=== PATIENT | female | born 1960 | race Caucasian/White ===

== ENCOUNTER 2019-05-27 06:52 | Inpatient (IN) ==
[~2019-05-27 06:52] MED LIST: LIDOCAINE 1% 20 ML VIAL ONE; MIDAZOLAM 2 MG/2 ML VIAL ONE; diphenhydrAMINE 50 MG/1 ML VIAL ONE; fentaNYL 100 MCG/2 ML VIAL ONE
[2019-05-27] MEDS ORDERED: TIROFIBAN 5,000 MCG/100 ML PREMIX IV ONE (06:58)
[2019-05-27] MEDS ORDERED: HYDROmorphone 2 MG/1 ML VIAL ONE (07:16)
[2019-05-27] MEDS ORDERED: ENOXAPARIN 60 MG/0.6 ML SYRINGE ONE (07:22)
[2019-05-27] MEDS ORDERED: FUROSEMIDE 40 MG/4 ML VIAL ONE (07:47)
[2019-05-27 07:59] LABS: Basophils # 0.1 10*3/uL (0.0-0.2); Basophils % 0.5 % (0.0-0.8); Eosinophils % 0.1 % (0.00-10.9); Hematocrit 41.9 VOL% (35.7-47.0); Hemoglobin 13.7 GM/DL (12.0-16.0); Immature Granulocytes % 0.6 %; Immature Granulocytes Absolute 0.09 #; Lymphocytes # 2.3 10*3/uL (1.4-4.0); Lymphocytes % 14.4 % (21.3-54.2); Mean Corpuscular HGB Conc 32.7 GM/DL (32-36); Mean Corpuscular Volume 92.5 FL (87-102); Mean Platelet Volume 11.6 FL (9.6-12.0); Monocytes % 3.4 % (1.7-12.7); Platelet Count 291 T/CUMM (130-400); Red Blood Count 4.53 MC/CUMM (3.8-5.5); Red Cell Distribution Width 12.7 % (9.3-17.3)
[2019-05-27] MEDS ORDERED: NITROGLYCERIN SL 0.4 MG TABLET SL PRN (08:00)
[2019-05-27] MEDS ORDERED: ACETAMINOPHEN 325 MG TABLET PO PRN (08:00)
[2019-05-27 08:15] LABS: Albumin 3.1 G/DL (3.4-5.0); Bilirubin,Total 0.5 MG/DL (0.2-1.0); Calcium 7.9 MG/DL (8.5-10.1); Osmolality,Calculated 267.5 MOS/KG (273-304); Total Protein 6.1 G/DL (6.4-8.3)
[2019-05-27 08:24] LABS: Risk Ratio 3.77; VLDL CHOLESTEROL 20.4 MG/DL
[2019-05-27 08:36] LABS: CKMB % 7.4 %
[2019-05-27 08:42] LABS: Apearance,Urine Slightly Hazy (Clear); Bilirubin,Urine Negative (Negative); Blood, Urine Negative (Negative); Glucose,Urine (UA) 50 mg/dL (Negative); Ketones,Urine Negative (Negative); Mucus,Urine Few /LPF (Occasional); Nitrite,Urine Negative (Negative); Protein,Urine Negative; RBC,Urine 3 /HPF (0-4); Urine Color Amber (Yellow); Urine Specific Gravity 1.049 (1.001-1.035); Urine Urobilinogen < 2.0 EU/DL (0.2-1.0); WBC,Urine <1 /HPF (0-6)
[2019-05-27 09:11] LABS: CKMB % 8.8 %
[2019-05-27] MEDS ORDERED: LEVALBUTEROL 1.25 MG/3 ML NEB RESP TX ONE (09:24)
[2019-05-27] MEDS: ALBUTEROL 1.25 MG/3 ML NEB RESP TX PRN (09:25)
[2019-05-27] MEDS ORDERED: ONDANSETRON 4 MG/2 ML VIAL ONE (09:27)
[2019-05-27] MEDS ORDERED: NOREPINEPHRINE 4 MG/4 ML VIAL IV ONE (09:37)
[2019-05-27] MEDS ORDERED: METOPROLOL TARTRATE 5 MG/5 ML VIAL IV ONE (09:38)
[2019-05-27] MEDS ORDERED: SUCCINYLCHOLINE 200 MG/10 ML VIAL ONE (09:49)
[2019-05-27] MEDS ORDERED: MIDAZOLAM 2 MG/2 ML VIAL ONE ×2 (10:05→12:09)
[2019-05-27] MEDS ORDERED: HEPARIN/NACL 0.9% 2 UNITS/ML 500 ML IV ONE (10:39)
[2019-05-27 10:58] LABS: ABG Base Excess -16.5 MMOL/L (-2.5-2.5); ABG PCO2 42.6 MM HG (35-48); ABG TCO2 12.4 MMOL/L (23-27)
[2019-05-27 10:59] LABS: ABG PH 7.091 (7.35-7.45)
[2019-05-27] MEDS ORDERED: NOREPINEPHRINE 16 MG in SODIUM CHLORIDE 0.9% 242 ML IV PRN (11:41)
[2019-05-27] MEDS: PANTOPRAZOLE 40 MG VIAL IV SCH ×2 (11:51→20:07)
[2019-05-27 12:08] LABS: ABG Oxygen Saturation 95.9 % (95-100); ABG PCO2 38.6 MM HG (35-48); ABG PH 7.348 (7.35-7.45); ABG PO2 82.6 MM HG (80-95); ABG TCO2 18.6 MMOL/L (23-27)
[2019-05-27] MEDS ORDERED: NOREPINEPHRINE 8 MG in SODIUM CHLORIDE 0.9% 242 ML IV PRN (12:20)
[2019-05-27] MEDS: PANTOPRAZOLE 40 MG TABLET PO SCH (12:33)
[2019-05-27] MEDS: SODIUM CHLORIDE 0.9% 1,000 ML IV SCH (12:34)
[2019-05-27] MEDS: METOPROLOL TARTRATE 50 MG TABLET PO SCH ×2 (12:34→21:54)
[2019-05-27] MEDS: TICAGRELOR 90 MG TABLET PO SCH ×2 (12:54→20:08)
[2019-05-27] MEDS: MIDAZOLAM 100 MG in SODIUM CHLORIDE 0.9% 80 ML IV SCH (12:54)
[2019-05-27] MEDS: methylPREDNISolone SOD SUC 40 MG/1 ML VIAL IV SCH ×2 (14:23→21:42)
[2019-05-27] MEDS ORDERED: SODIUM CHLORIDE 0.9% 1,000 ML IV SCH (15:30)
[2019-05-27 17:51] LABS: CKMB % 9.6 %
[2019-05-27] MEDS: ROSUVASTATIN 20 MG TABLET PO SCH (20:14)
[2019-05-28] MEDS: ZALEPLON 5 MG CAPSULE PO PRN (00:16)
[2019-05-28 01:10] LABS: CKMB % 10.1 %
[2019-05-28 01:13] LABS: Troponin I > 200.000 NG/ML (0.00-0.045)
[2019-05-28] MEDS: fentaNYL 100 MCG/2 ML VIAL IV PRN ×3 (03:13→21:38)
[2019-05-28 03:50] LABS: ABG Base Excess -2.5 MMOL/L (-2.5-2.5); ABG HCO3 20.6 MMOL/L (20-26); ABG Oxygen Saturation 98.7 % (95-100); ABG PCO2 30.3 MM HG (35-48); ABG PH 7.451 (7.35-7.45); ABG PO2 281.1 MM HG (80-95); ABG TCO2 21.6 MMOL/L (23-27)
[2019-05-28 04:14] LABS: Basophils % 0.1 % (0.0-0.8); Hematocrit 31.8 VOL% (35.7-47.0); Hemoglobin 10.9 GM/DL (12.0-16.0); Immature Granulocytes % 0.6 %; Immature Granulocytes Absolute 0.12 #; Lymphocytes # 1.7 10*3/uL (1.4-4.0); Lymphocytes % 8.3 % (21.3-54.2); Mean Corpuscular HGB Conc 34.3 GM/DL (32-36); Mean Corpuscular Volume 91.6 FL (87-102); Mean Platelet Volume 12.6 FL (9.6-12.0); Monocytes % 4.9 % (1.7-12.7); Neutrophils % 86.1 % (38.7-73.9); Platelet Count 197 T/CUMM (130-400); Red Blood Count 3.47 MC/CUMM (3.8-5.5); White Blood Count 20.9 T/CUMM (4-12)
[2019-05-28 04:53] LABS: Band Neutrophils 3 % (0-10); Lymphocytes 7 % (20-55); Metamyelocytes 1 %; Platelet Estimate Normal; Segmented Neutrophils 85 % (50-85); Total Cells Counted 100
[2019-05-28 04:54] LABS: Hypochromasia Slight
[2019-05-28] MEDS: MIDAZOLAM 100 MG in SODIUM CHLORIDE 0.9% 80 ML IV SCH ×2 (04:58→13:00)
[2019-05-28] MEDS ORDERED: fentaNYL 100 MCG/2 ML VIAL IV ONE (05:06)
[2019-05-28] MEDS: methylPREDNISolone SOD SUC 40 MG/1 ML VIAL IV SCH ×3 (05:23→21:35)
[2019-05-28] MEDS ORDERED: METOPROLOL TARTRATE 5 MG/5 ML VIAL IV ONE (06:57)
[2019-05-28] MEDS ORDERED: FUROSEMIDE 40 MG/4 ML VIAL IV ONE (07:13)
[2019-05-28] MEDS: PANTOPRAZOLE 40 MG TABLET PO SCH (09:00)
[2019-05-28] MEDS: METOPROLOL TARTRATE 50 MG TABLET PO SCH ×2 (10:45→21:15)
[2019-05-28] MEDS: TICAGRELOR 90 MG TABLET PO SCH ×2 (10:45→21:15)
[2019-05-28] MEDS: PANTOPRAZOLE 40 MG VIAL IV SCH ×2 (10:45→21:15)
[2019-05-28] MEDS: ASPIRIN EC 81 MG TABLET PO SCH (10:45)
[2019-05-28] MEDS: ENOXAPARIN 40 MG/0.4 ML SYRINGE SUBCUT SCH (10:45)
[2019-05-28] MEDS: SODIUM CHLORIDE 0.9% 1,000 ML IV SCH (12:28)
[2019-05-28] MEDS: ROSUVASTATIN 20 MG TABLET PO SCH (21:15)
[2019-05-28] MEDS: diphenhydrAMINE CAP 25 MG CAPSULE PO PRN (21:15)
[2019-05-29 03:47] LABS: ABG Base Excess 1.6 MMOL/L (-2.5-2.5); ABG HCO3 25.8 MMOL/L (20-26); ABG Oxygen Saturation 98.6 % (95-100); ABG PCO2 30.2 MM HG (35-48); ABG PH 7.512 (7.35-7.45); ABG TCO2 22.4 MMOL/L (23-27)
[2019-05-29] MEDS: fentaNYL 100 MCG/2 ML VIAL IV PRN ×4 (03:53→18:08)
[2019-05-29 04:00] LABS: Calcium 8.4 MG/DL (8.5-10.1); Osmolality,Calculated 293.1 MOS/KG (273-304)
[2019-05-29] MEDS: methylPREDNISolone SOD SUC 40 MG/1 ML VIAL IV SCH ×3 (06:46→21:21)
[2019-05-29] MEDS ORDERED: FUROSEMIDE 40 MG/4 ML VIAL IV ONE (07:46)
[2019-05-29] MEDS: ENOXAPARIN 40 MG/0.4 ML SYRINGE SUBCUT SCH (08:19)
[2019-05-29] MEDS: TICAGRELOR 90 MG TABLET PO SCH ×2 (08:19→21:13)
[2019-05-29] MEDS: METOPROLOL TARTRATE 50 MG TABLET PO SCH ×2 (08:19→21:13)
[2019-05-29] MEDS: PANTOPRAZOLE 40 MG VIAL IV SCH ×2 (08:19→21:16)
[2019-05-29] MEDS: ASPIRIN EC 81 MG TABLET PO SCH (08:31)
[2019-05-29] MEDS: ASPIRIN CHEW 81 MG TABLET PO SCH (09:00)
[2019-05-29] MEDS ORDERED: MIDAZOLAM 100 MG in SODIUM CHLORIDE 0.9% 80 ML IV PRN (11:43)
[2019-05-29] MEDS: ONDANSETRON 4 MG/2 ML VIAL IV PRN (21:09)
[2019-05-29] MEDS: ROSUVASTATIN 20 MG TABLET PO SCH (21:12)
[2019-05-29] MEDS ORDERED: SODIUM CHLORIDE 0.9% 250 ML IV ONE (23:49)
[2019-05-30] MEDS: PHENYLEPHRINE DRIP 40 MG/250 ML PREMIX IV PRN ×8 (00:36→23:36)
[2019-05-30] MEDS: ALBUTEROL 1.25 MG/3 ML NEB RESP TX PRN ×2 (01:35→10:03)
[2019-05-30 01:51] LABS: Basophils % 0.1 % (0.0-0.8); Hematocrit 25.8 VOL% (35.7-47.0); Hemoglobin 8.4 GM/DL (12.0-16.0); Immature Granulocytes % 1.7 %; Immature Granulocytes Absolute 0.44 #; Lymphocytes # 1.9 10*3/uL (1.4-4.0); Lymphocytes % 7.3 % (21.3-54.2); Mean Corpuscular HGB Conc 32.6 GM/DL (32-36); Monocytes % 3.6 % (1.7-12.7); NRBC # 0.46 10*3/uL; Neutrophils % 87.3 % (38.7-73.9); Platelet Count 207 T/CUMM (130-400); Red Blood Count 2.66 MC/CUMM (3.8-5.5); Red Cell Distribution Width 13.1 % (9.3-17.3); White Blood Count 26.3 T/CUMM (4-12)
[2019-05-30 01:55] LABS: ABG Base Excess -0.3 MMOL/L (-2.5-2.5); ABG Oxygen Saturation 87.6 % (95-100); ABG PCO2 29.8 MM HG (35-48); ABG PH 7.479 (7.35-7.45); ABG PO2 56.7 MM HG (80-95); ABG TCO2 19.1 MMOL/L (23-27)
[2019-05-30 02:05] LABS: Calcium 7.7 MG/DL (8.5-10.1); Osmolality,Calculated 293.4 MOS/KG (273-304)
[2019-05-30] MEDS ORDERED: SODIUM CHLORIDE 0.9% 1,000 ML IV PRN (02:06)
[2019-05-30] MEDS: LEVOFLOXACIN INJ 500 MG in PREMIX 1 EACH IV SCH (02:43)
[2019-05-30 04:21] LABS: Anisocytosis 1+; Hypochromasia 1+; Lymphocytes 3 % (20-55); Segmented Neutrophils 95 % (50-85); Total Cells Counted 100
[2019-05-30 04:22] LABS: Macrocytosis Slight; Microcytosis Slight; Polychromasia 1+
[2019-05-30] MEDS: fentaNYL 100 MCG/2 ML VIAL IV PRN ×2 (05:36→07:36)
[2019-05-30] MEDS: methylPREDNISolone SOD SUC 40 MG/1 ML VIAL IV SCH ×3 (05:45→21:38)
[2019-05-30] MEDS ORDERED: FUROSEMIDE 40 MG/4 ML VIAL IV ONE (06:27)
[2019-05-30] MEDS: ENOXAPARIN 40 MG/0.4 ML SYRINGE SUBCUT SCH (08:28)
[2019-05-30] MEDS: POTASSIUM CHLORIDE 20 MEQ TABLET PO SCH ×2 (08:29→21:34)
[2019-05-30] MEDS: METOPROLOL TARTRATE 50 MG TABLET PO SCH ×2 (08:29→21:33)
[2019-05-30] MEDS: ASPIRIN CHEW 81 MG TABLET PO SCH (08:29)
[2019-05-30] MEDS: TICAGRELOR 90 MG TABLET PO SCH ×2 (08:30→21:33)
[2019-05-30] MEDS: PANTOPRAZOLE 40 MG VIAL IV SCH ×2 (08:30→21:34)
[2019-05-30] MEDS ORDERED: CLORAZEPATE 3.75 MG TABLET ONE (08:49)
[2019-05-30] MEDS: CLORAZEPATE 3.75 MG TABLET PO PRN (08:50)
[2019-05-30] MEDS ORDERED: FUROSEMIDE 40 MG TABLET PO SCH (09:30)
[2019-05-30] MEDS ORDERED: LORazepam 2 MG/1 ML VIAL IV ONE (10:14)
[2019-05-30] MEDS ORDERED: LORazepam 2 MG/1 ML VIAL ONE (10:15)
[2019-05-30] MEDS ORDERED: SUCCINYLCHOLINE 200 MG/10 ML VIAL ONE (10:36)
[2019-05-30] MEDS ORDERED: NOREPINEPHRINE 4 MG/4 ML VIAL IV ONE ×2 (10:37→14:24)
[2019-05-30] MEDS ORDERED: MIDAZOLAM 2 MG/2 ML VIAL IV ONE (10:45)
[2019-05-30] MEDS: NOREPINEPHRINE 8 MG in SODIUM CHLORIDE 0.9% 242 ML IV PRN ×3 (10:45→18:29)
[2019-05-30] MEDS ORDERED: SODIUM CHLORIDE 0.9% 1,000 ML IV ONE (10:45)
[2019-05-30] MEDS ORDERED: DOBUTamine 500 MG/250 ML PREMIX IV ONE (10:53)
[2019-05-30] MEDS ORDERED: SODIUM BICARBONATE 50 MEQ/50 ML VIAL IV ONE ×2 (10:53→11:36)
[2019-05-30] MEDS ORDERED: AMIODARONE INJ 450 MG in DEXTROSE 5% 241 ML IV SCH (11:00)
[2019-05-30 11:11] LABS: Basophils % 0.2 % (0.0-0.8); Hematocrit 34.1 VOL% (35.7-47.0); Immature Granulocytes % 3.8 %; Immature Granulocytes Absolute 0.89 #; Lymphocytes # 3.6 10*3/uL (1.4-4.0); Mean Corpuscular HGB Conc 29.9 GM/DL (32-36); Mean Corpuscular Volume 102.1 FL (87-102); Mean Platelet Volume 13.3 FL (9.6-12.0); Monocytes % 4.6 % (1.7-12.7); NRBC # 1.71 10*3/uL; Neutrophils % 76.4 % (38.7-73.9); Red Cell Distribution Width 14.3 % (9.3-17.3); White Blood Count 23.7 T/CUMM (4-12)
[2019-05-30 11:12] LABS: Red Blood Count 3.34 MC/CUMM (3.8-5.5)
[2019-05-30 11:13] LABS: Hemoglobin 10.2 GM/DL (12.0-16.0); Platelet Count 158 T/CUMM (130-400)
[2019-05-30] MEDS: DOBUTamine 500 MG/250 ML PREMIX IV SCH (11:15)
[2019-05-30] MEDS ORDERED: CALCIUM GLUCONATE 1,000 MG in SODIUM CHLORIDE 0.9% 100 ML IV ONE (11:25)
[2019-05-30 11:34] LABS: ABG Base Excess -14.1 MMOL/L (-2.5-2.5); ABG HCO3 15.3 MMOL/L (20-26); ABG Oxygen Saturation 86.8 % (95-100); ABG PCO2 51.7 MM HG (35-48); ABG PO2 76.2 MM HG (80-95); ABG TCO2 16.9 MMOL/L (23-27)
[2019-05-30 11:38] LABS: Band Neutrophils 6 % (0-10); Lymphocytes 22 % (20-55); Nucleated Red Blood Cells 12 (0-5); Segmented Neutrophils 69 % (50-85); Total Cells Counted 100
[2019-05-30 11:39] LABS: Macrocytosis 1+
[2019-05-30 11:40] LABS: Hypochromasia Slight; Platelet Estimate Adequate; Polychromasia Slight
[2019-05-30] MEDS ORDERED: SODIUM BICARBONATE 50 MEQ/50 ML SYRINGE IV ONE (11:56)
[2019-05-30] MEDS ORDERED: EPINEPHrine 1 MG/10 ML SYRINGE ONE (11:56)
[2019-05-30] MEDS ORDERED: EPINEPHrine 1 MG/ML VIAL ONE (11:56)
[2019-05-30] MEDS: MIDAZOLAM 100 MG in SODIUM CHLORIDE 0.9% 80 ML IV PRN (12:00)
[2019-05-30] MEDS: CISATRACURIUM 200 MG in SODIUM CHLORIDE 0.9% 180 ML IV SCH (12:20)
[2019-05-30] MEDS: ALBUTEROL/IPRATROPIUM 3 ML NEB RESP TX SCH ×2 (13:55→19:52)
[2019-05-30 14:49] LABS: ABG Base Excess 1.5 MMOL/L (-2.5-2.5); ABG HCO3 25.3 MMOL/L (20-26); ABG Oxygen Saturation 76.6 % (95-100); ABG PCO2 42.4 MM HG (35-48); ABG PH 7.403 (7.35-7.45); ABG PO2 45.7 MM HG (80-95); ABG TCO2 23.3 MMOL/L (23-27)
[2019-05-30 16:32] LABS: Albumin 2.6 G/DL (3.4-5.0); Calcium 8.1 MG/DL (8.5-10.1); Total Protein 5.6 G/DL (6.4-8.3)
[2019-05-30] MEDS ORDERED: POTASSIUM CHLORIDE RIDER 100 ML IV ONE (18:19)
[2019-05-30] MEDS: POTASSIUM CHLORIDE RIDER 20 MEQ in PREMIX 1 EACH IV PRN ×2 (18:29→21:16)
[2019-05-30] MEDS: AMIODARONE INJ 450 MG in DEXTROSE 5% 241 ML IV SCH (19:10)
[2019-05-30] MEDS: ROSUVASTATIN 20 MG TABLET PO SCH (21:33)
[2019-05-30] MEDS: POTASSIUM CHLORIDE RIDER 10 MEQ in PREMIX 1 EACH IV PRN (23:10)
[2019-05-31 01:36] LABS: CKMB % 0.7 %
[2019-05-31 01:37] LABS: Troponin I 48.4 NG/ML (0.00-0.045)
[2019-05-31] MEDS: AMIODARONE INJ 450 MG in DEXTROSE 5% 241 ML IV SCH ×2 (01:40→08:58)
[2019-05-31] MEDS: PHENYLEPHRINE DRIP 40 MG/250 ML PREMIX IV PRN ×9 (01:41→21:34)
[2019-05-31] MEDS: ALBUTEROL/IPRATROPIUM 3 ML NEB RESP TX SCH ×4 (02:25→20:13)
[2019-05-31] MEDS: LEVOFLOXACIN INJ 500 MG in PREMIX 1 EACH IV SCH (02:55)
[2019-05-31] MEDS: CISATRACURIUM 200 MG in SODIUM CHLORIDE 0.9% 180 ML IV SCH ×2 (03:20→12:26)
[2019-05-31] MEDS: POTASSIUM CHLORIDE RIDER 20 MEQ in PREMIX 1 EACH IV PRN ×3 (03:35→10:34)
[2019-05-31 05:03] LABS: Basophils % 0.1 % (0.0-0.8); Hematocrit 32.6 VOL% (35.7-47.0); Hemoglobin 10.6 GM/DL (12.0-16.0); Immature Granulocytes % 1.2 %; Lymphocytes # 1.8 10*3/uL (1.4-4.0); Lymphocytes % 10.3 % (21.3-54.2); Mean Corpuscular HGB Conc 32.5 GM/DL (32-36); Mean Corpuscular Volume 93.7 FL (87-102); NRBC # 0.73 10*3/uL; Neutrophils % 83.4 % (38.7-73.9); Platelet Count 162 T/CUMM (130-400); Red Blood Count 3.48 MC/CUMM (3.8-5.5); Red Cell Distribution Width 14.6 % (9.3-17.3); White Blood Count 17.1 T/CUMM (4-12)
[2019-05-31 05:06] LABS: ABG Base Excess 3.9 MMOL/L (-2.5-2.5); ABG HCO3 27.9 MMOL/L (20-26); ABG Oxygen Saturation 99.9 % (95-100); ABG TCO2 22.4 MMOL/L (23-27)
[2019-05-31 05:28] LABS: Osmolality,Calculated 304.6 MOS/KG (273-304)
[2019-05-31] MEDS: methylPREDNISolone SOD SUC 40 MG/1 ML VIAL IV SCH ×3 (05:38→23:38)
[2019-05-31 05:42] LABS: Albumin 2.3 G/DL (3.4-5.0); Bilirubin,Total 0.9 MG/DL (0.2-1.0); Osmolality,Calculated 304.6 MOS/KG (273-304); Total Protein 5.1 G/DL (6.4-8.3)
[2019-05-31 07:21] LABS: CKMB % 0.5 %
[2019-05-31 07:22] LABS: Troponin I 45.8 NG/ML (0.00-0.045)
[2019-05-31] MEDS ORDERED: SERTRALINE 25 MG TABLET PO ONE (08:36)
[2019-05-31] MEDS: FUROSEMIDE 40 MG/4 ML VIAL IV SCH (09:05)
[2019-05-31] MEDS: ASPIRIN CHEW 81 MG TABLET PO SCH (09:05)
[2019-05-31] MEDS: AMIODARONE 200 MG TABLET PO SCH ×2 (09:06→21:27)
[2019-05-31] MEDS: TICAGRELOR 90 MG TABLET PO SCH ×2 (09:06→21:26)
[2019-05-31] MEDS: ENOXAPARIN 40 MG/0.4 ML SYRINGE SUBCUT SCH (09:06)
[2019-05-31] MEDS: METOPROLOL TARTRATE 50 MG TABLET PO SCH ×2 (09:06→21:27)
[2019-05-31] MEDS: POTASSIUM CHLORIDE 20 MEQ/15 ML UDCUP PO SCH ×2 (09:09→21:27)
[2019-05-31] MEDS: PANTOPRAZOLE 40 MG VIAL IV SCH ×2 (09:10→21:27)
[2019-05-31] MEDS: INSULIN REGULAR 100 UNIT/ML SUBCUT SCH ×3 (11:38→21:26)
[2019-05-31] MEDS: DOBUTamine 500 MG/250 ML PREMIX IV SCH ×2 (12:26→23:37)
[2019-05-31 14:33] LABS: ABG Base Excess 3.5 MMOL/L (-2.5-2.5); ABG HCO3 27.6 MMOL/L (20-26); ABG PCO2 30.2 MM HG (35-48); ABG PH 7.537 (7.35-7.45); ABG TCO2 22.9 MMOL/L (23-27)
[2019-05-31] MEDS: ACETAMINOPHEN 325 MG TABLET PO PRN (17:54)
[2019-05-31] MEDS ORDERED: HEPARIN/NACL 0.9% 2 UNITS/ML 500 ML IV ONE (19:45)
[2019-05-31] MEDS ORDERED: SERTRALINE 25 MG TABLET PO SCH (21:00)
[2019-05-31] MEDS: ROSUVASTATIN 20 MG TABLET PO SCH (21:27)
[2019-06-01] MEDS: PHENYLEPHRINE DRIP 40 MG/250 ML PREMIX IV PRN ×9 (00:04→22:23)
[2019-06-01] MEDS: INSULIN REGULAR 100 UNIT/ML SUBCUT SCH ×6 (00:37→20:32)
[2019-06-01] MEDS: ALBUTEROL/IPRATROPIUM 3 ML NEB RESP TX SCH ×4 (00:41→19:27)
[2019-06-01] MEDS: LEVOFLOXACIN INJ 500 MG in PREMIX 1 EACH IV SCH (03:24)
[2019-06-01 05:40] LABS: ABG Base Excess 2.3 MMOL/L (-2.5-2.5); ABG HCO3 26.5 MMOL/L (20-26); ABG PCO2 31.2 MM HG (35-48); ABG PH 7.508 (7.35-7.45); ABG TCO2 21.9 MMOL/L (23-27)
[2019-06-01 05:45] LABS: Basophils % 0.1 % (0.0-0.8); Hematocrit 28.2 VOL% (35.7-47.0); Hemoglobin 8.9 GM/DL (12.0-16.0); Immature Granulocytes % 0.9 %; Immature Granulocytes Absolute 0.19 #; Lymphocytes # 1.1 10*3/uL (1.4-4.0); Lymphocytes % 5.4 % (21.3-54.2); Mean Corpuscular HGB Conc 31.6 GM/DL (32-36); Mean Corpuscular Volume 98.6 FL (87-102); Monocytes % 3.6 % (1.7-12.7); NRBC # 0.41 10*3/uL; Platelet Count 157 T/CUMM (130-400); Red Blood Count 2.86 MC/CUMM (3.8-5.5); Red Cell Distribution Width 14.7 % (9.3-17.3); White Blood Count 20.3 T/CUMM (4-12)
[2019-06-01] MEDS: methylPREDNISolone SOD SUC 40 MG/1 ML VIAL IV SCH ×2 (05:51→15:50)
[2019-06-01 06:15] LABS: Albumin 2.3 G/DL (3.4-5.0); Anisocytosis 1+; Band Neutrophils 1 % (0-10); Bilirubin,Total 0.9 MG/DL (0.2-1.0); Hypochromasia 1+; Lymphocytes 3 % (20-55); Nucleated Red Blood Cells 3 (0-5); Platelet Estimate Adequate; Polychromasia 1+; Segmented Neutrophils 94 % (50-85); Total Cells Counted 100
[2019-06-01] MEDS: fentaNYL 100 MCG/2 ML VIAL IV PRN ×4 (07:19→23:01)
[2019-06-01] MEDS: MIDAZOLAM 100 MG in SODIUM CHLORIDE 0.9% 80 ML IV PRN (08:03)
[2019-06-01] MEDS: ENOXAPARIN 40 MG/0.4 ML SYRINGE SUBCUT SCH (10:10)
[2019-06-01] MEDS: FUROSEMIDE 40 MG/4 ML VIAL IV SCH (10:11)
[2019-06-01] MEDS: PANTOPRAZOLE 40 MG VIAL IV SCH ×2 (10:11→20:43)
[2019-06-01] MEDS: AMIODARONE 200 MG TABLET PO SCH ×2 (10:11→20:43)
[2019-06-01] MEDS: ASPIRIN CHEW 81 MG TABLET PO SCH (10:12)
[2019-06-01] MEDS: POTASSIUM CHLORIDE 20 MEQ/15 ML UDCUP PO SCH ×2 (10:12→20:42)
[2019-06-01] MEDS: TICAGRELOR 90 MG TABLET PO SCH ×2 (10:12→20:43)
[2019-06-01] MEDS: METOPROLOL TARTRATE 50 MG TABLET PO SCH ×2 (10:12→20:43)
[2019-06-01] MEDS: POTASSIUM CHLORIDE RIDER 10 MEQ in PREMIX 1 EACH IV PRN (10:20)
[2019-06-01] MEDS: POTASSIUM CHLORIDE RIDER 20 MEQ in PREMIX 1 EACH IV PRN ×4 (11:47→20:58)
[2019-06-01] MEDS: DOBUTamine 500 MG/250 ML PREMIX IV SCH (11:47)
[2019-06-01] MEDS: CISATRACURIUM 200 MG in SODIUM CHLORIDE 0.9% 180 ML IV SCH (11:48)
[2019-06-01] MEDS: ROSUVASTATIN 20 MG TABLET PO SCH (20:42)
[2019-06-01] MEDS: SERTRALINE 50 MG TABLET PO SCH (20:43)
[2019-06-02] MEDS: INSULIN REGULAR 100 UNIT/ML SUBCUT SCH ×6 (00:34→21:27)
[2019-06-02] MEDS: methylPREDNISolone SOD SUC 40 MG/1 ML VIAL IV SCH ×4 (00:34→22:02)
[2019-06-02] MEDS: ZALEPLON 5 MG CAPSULE PO PRN ×2 (00:35→21:27)
[2019-06-02] MEDS: ONDANSETRON 4 MG/2 ML VIAL IV PRN (00:35)
[2019-06-02] MEDS: ALBUTEROL/IPRATROPIUM 3 ML NEB RESP TX SCH ×4 (00:48→19:09)
[2019-06-02] MEDS: PHENYLEPHRINE DRIP 40 MG/250 ML PREMIX IV PRN ×3 (01:59→17:09)
[2019-06-02] MEDS: LEVOFLOXACIN INJ 500 MG in PREMIX 1 EACH IV SCH (02:27)
[2019-06-02 03:29] LABS: Basophils % 0.2 % (0.0-0.8); Hematocrit 36.1 VOL% (35.7-47.0); Hemoglobin 10.9 GM/DL (12.0-16.0); Immature Granulocytes % 1.1 %; Immature Granulocytes Absolute 0.29 #; Lymphocytes % 4.1 % (21.3-54.2); Mean Corpuscular HGB Conc 30.2 GM/DL (32-36); Mean Corpuscular Volume 100.6 FL (87-102); Mean Platelet Volume 12.7 FL (9.6-12.0); NRBC # 0.38 10*3/uL; Neutrophils % 91.6 % (38.7-73.9); Platelet Count 175 T/CUMM (130-400); Red Blood Count 3.59 MC/CUMM (3.8-5.5); White Blood Count 25.6 T/CUMM (4-12)
[2019-06-02 03:43] LABS: ABG HCO3 23.3 MMOL/L (20-26); ABG Oxygen Saturation 87.3 % (95-100); ABG PCO2 32.5 MM HG (35-48); ABG PH 7.442 (7.35-7.45); ABG TCO2 18.7 MMOL/L (23-27)
[2019-06-02 03:48] LABS: Albumin 2.4 G/DL (3.4-5.0); Calcium 7.1 MG/DL (8.5-10.1); Osmolality,Calculated 308.9 MOS/KG (273-304); Total Protein 5.4 G/DL (6.4-8.3)
[2019-06-02 04:16] LABS: Lymphocytes 10 % (20-55); Nucleated Red Blood Cells 1 (0-5); Segmented Neutrophils 87 % (50-85); Total Cells Counted 100
[2019-06-02 04:17] LABS: Anisocytosis 1+; Macrocytosis 1+; Ovalocytes 1+; Platelet Estimate Normal
[2019-06-02] MEDS ORDERED: FUROSEMIDE 40 MG/4 ML VIAL IV ONE (04:37)
[2019-06-02] MEDS: fentaNYL 100 MCG/2 ML VIAL IV PRN ×6 (05:04→21:33)
[2019-06-02] MEDS: MIDAZOLAM 100 MG in SODIUM CHLORIDE 0.9% 80 ML IV PRN (07:02)
[2019-06-02] MEDS: FUROSEMIDE 40 MG/4 ML VIAL IV SCH ×2 (08:34→16:07)
[2019-06-02] MEDS: ENOXAPARIN 40 MG/0.4 ML SYRINGE SUBCUT SCH (09:22)
[2019-06-02] MEDS: METOPROLOL TARTRATE 50 MG TABLET PO SCH ×2 (09:23→21:28)
[2019-06-02] MEDS: TICAGRELOR 90 MG TABLET PO SCH ×2 (09:23→21:28)
[2019-06-02] MEDS: AMIODARONE 200 MG TABLET PO SCH ×2 (09:23→21:28)
[2019-06-02] MEDS: ASPIRIN CHEW 81 MG TABLET PO SCH (09:23)
[2019-06-02] MEDS: POTASSIUM CHLORIDE 20 MEQ/15 ML UDCUP PO SCH ×2 (09:25→21:28)
[2019-06-02] MEDS: PANTOPRAZOLE 40 MG VIAL IV SCH ×2 (09:26→21:28)
[2019-06-02] MEDS: CISATRACURIUM 200 MG in SODIUM CHLORIDE 0.9% 180 ML IV SCH (11:18)
[2019-06-02] MEDS: DOBUTamine 500 MG/250 ML PREMIX IV SCH (11:19)
[2019-06-02] MEDS: ROSUVASTATIN 20 MG TABLET PO SCH (21:28)
[2019-06-02] MEDS: SERTRALINE 50 MG TABLET PO SCH (21:28)
[2019-06-03] MEDS: ALBUTEROL/IPRATROPIUM 3 ML NEB RESP TX SCH ×4 (00:35→19:47)
[2019-06-03] MEDS: INSULIN REGULAR 100 UNIT/ML SUBCUT SCH ×7 (01:02→23:56)
[2019-06-03] MEDS: fentaNYL 100 MCG/2 ML VIAL IV PRN ×3 (01:03→12:29)
[2019-06-03] MEDS: LEVOFLOXACIN INJ 500 MG in PREMIX 1 EACH IV SCH (01:41)
[2019-06-03] MEDS: PHENYLEPHRINE DRIP 40 MG/250 ML PREMIX IV PRN ×3 (02:26→21:47)
[2019-06-03 04:46] LABS: ABG Oxygen Saturation 99.9 % (95-100); ABG PCO2 32.7 MM HG (35-48); ABG PH 7.516 (7.35-7.45); ABG TCO2 23.1 MMOL/L (23-27)
[2019-06-03 04:48] LABS: Basophils % 0.1 % (0.0-0.8); Hematocrit 42.4 VOL% (35.7-47.0); Hemoglobin 13.4 GM/DL (12.0-16.0); Immature Granulocytes Absolute 0.15 #; Lymphocytes # 0.4 10*3/uL (1.4-4.0); Lymphocytes % 2.7 % (21.3-54.2); Mean Corpuscular HGB Conc 31.6 GM/DL (32-36); Mean Corpuscular Volume 98.1 FL (87-102); Mean Platelet Volume 12.4 FL (9.6-12.0); Monocytes % 2.7 % (1.7-12.7); NRBC # 0.17 10*3/uL; Neutrophils % 93.5 % (38.7-73.9); Platelet Count 123 T/CUMM (130-400); Red Blood Count 4.32 MC/CUMM (3.8-5.5); White Blood Count 14.6 T/CUMM (4-12)
[2019-06-03 05:13] LABS: Calcium 7.8 MG/DL (8.5-10.1); Osmolality,Calculated 311.9 MOS/KG (273-304)
[2019-06-03 05:27] LABS: Band Neutrophils 1 % (0-10); Lymphocytes 3 % (20-55); Segmented Neutrophils 92 % (50-85); Total Cells Counted 100
[2019-06-03 05:28] LABS: Hypochromasia 1+; Macrocytosis Slight; Platelet Estimate Normal; Polychromasia Slight
[2019-06-03] MEDS: methylPREDNISolone SOD SUC 40 MG/1 ML VIAL IV SCH ×3 (05:33→21:48)
[2019-06-03] MEDS: POTASSIUM CHLORIDE 20 MEQ/15 ML UDCUP PER TUBE PRN ×4 (05:36→18:53)
[2019-06-03] MEDS: POTASSIUM CHLORIDE RIDER 10 MEQ in PREMIX 1 EACH IV SCH ×4 (07:42→11:00)
[2019-06-03] MEDS: MIDAZOLAM 100 MG in SODIUM CHLORIDE 0.9% 80 ML IV PRN (08:30)
[2019-06-03] MEDS: FUROSEMIDE 40 MG/4 ML VIAL IV SCH ×2 (08:58→15:57)
[2019-06-03] MEDS: PANTOPRAZOLE 40 MG VIAL IV SCH ×2 (09:01→21:49)
[2019-06-03] MEDS: ASPIRIN CHEW 81 MG TABLET PO SCH ×2 (09:22→14:46)
[2019-06-03] MEDS: TICAGRELOR 90 MG TABLET PO SCH ×3 (09:23→21:36)
[2019-06-03] MEDS: ENOXAPARIN 40 MG/0.4 ML SYRINGE SUBCUT SCH ×2 (09:26→14:46)
[2019-06-03] MEDS: AMIODARONE 200 MG TABLET PO SCH ×2 (09:26→21:36)
[2019-06-03] MEDS: METOPROLOL TARTRATE 50 MG TABLET PO SCH ×2 (09:26→21:36)
[2019-06-03] MEDS: POTASSIUM CHLORIDE 20 MEQ/15 ML UDCUP PO SCH ×2 (09:27→21:36)
[2019-06-03] MEDS: CISATRACURIUM 200 MG in SODIUM CHLORIDE 0.9% 180 ML IV SCH (11:41)
[2019-06-03 12:36] LABS: Calcium 7.7 MG/DL (8.5-10.1)
[2019-06-03] MEDS ORDERED: MIDAZOLAM 2 MG/2 ML VIAL ONE (13:20)
[2019-06-03] MEDS ORDERED: ETOMIDATE 40 MG/20 ML VIAL IV ONE (13:20)
[2019-06-03] MEDS ORDERED: SODIUM CHLORIDE 0.9% 250 ML IV ONE (13:20)
[2019-06-03] MEDS ORDERED: DEXTROSE 10% 250 ML BAG IV PRN (13:29)
[2019-06-03] MEDS ORDERED: GLUCAGON 1 MG VIAL IM PRN (13:29)
[2019-06-03] MEDS ORDERED: HEPARIN/NACL 0.9% 2 UNITS/ML 500 ML IV ONE (15:15)
[2019-06-03] MEDS: SERTRALINE 50 MG TABLET PO SCH (21:36)
[2019-06-03] MEDS: ROSUVASTATIN 20 MG TABLET PO SCH (21:36)
[2019-06-03] MEDS: DOBUTamine 500 MG/250 ML PREMIX IV SCH ×2 (22:05→23:55)
[2019-06-04] MEDS: ALBUTEROL/IPRATROPIUM 3 ML NEB RESP TX SCH ×4 (00:12→19:04)
[2019-06-04] MEDS: LEVOFLOXACIN INJ 500 MG in PREMIX 1 EACH IV SCH (02:22)
[2019-06-04 04:25] LABS: ABG HCO3 27.1 MMOL/L (20-26); ABG Oxygen Saturation 99.2 % (95-100); ABG PCO2 37.2 MM HG (35-48); ABG PH 7.464 (7.35-7.45); ABG TCO2 23.4 MMOL/L (23-27)
[2019-06-04 04:41] LABS: Basophils % 0.1 % (0.0-0.8); Hematocrit 35.6 VOL% (35.7-47.0); Hemoglobin 10.8 GM/DL (12.0-16.0); Immature Granulocytes % 1.4 %; Immature Granulocytes Absolute 0.29 #; Lymphocytes # 0.4 10*3/uL (1.4-4.0); Lymphocytes % 2.1 % (21.3-54.2); Mean Corpuscular HGB Conc 30.3 GM/DL (32-36); Mean Corpuscular Volume 101.1 FL (87-102); Mean Platelet Volume 12.8 FL (9.6-12.0); Monocytes % 3.2 % (1.7-12.7); NRBC # 0.11 10*3/uL; Neutrophils % 93.2 % (38.7-73.9); Platelet Count 175 T/CUMM (130-400); Red Blood Count 3.52 MC/CUMM (3.8-5.5); Red Cell Distribution Width 15.6 % (9.3-17.3); White Blood Count 20.8 T/CUMM (4-12)
[2019-06-04] MEDS: INSULIN REGULAR 100 UNIT/ML SUBCUT SCH ×5 (04:41→20:14)
[2019-06-04 04:47] LABS: Calcium 8.1 MG/DL (8.5-10.1); Osmolality,Calculated 315.6 MOS/KG (273-304)
[2019-06-04 05:14] LABS: Lymphocytes 2 % (20-55); Nucleated Red Blood Cells 1 (0-5); Platelet Estimate Adequate; Segmented Neutrophils 96 % (50-85); Total Cells Counted 100
[2019-06-04 05:15] LABS: Hypochromasia 1+; Macrocytosis Slight
[2019-06-04] MEDS: methylPREDNISolone SOD SUC 40 MG/1 ML VIAL IV SCH ×3 (06:18→21:40)
[2019-06-04] MEDS: MIDAZOLAM 100 MG in SODIUM CHLORIDE 0.9% 80 ML IV PRN (06:37)
[2019-06-04] MEDS: PHENYLEPHRINE DRIP 40 MG/250 ML PREMIX IV PRN ×2 (07:24→17:44)
[2019-06-04] MEDS: CLORAZEPATE 3.75 MG TABLET PO PRN ×2 (08:01→20:14)
[2019-06-04] MEDS: AMIODARONE 200 MG TABLET PO SCH ×2 (08:01→20:08)
[2019-06-04] MEDS: FUROSEMIDE 40 MG/4 ML VIAL IV SCH (08:01)
[2019-06-04] MEDS: ENOXAPARIN 40 MG/0.4 ML SYRINGE SUBCUT SCH (08:01)
[2019-06-04] MEDS: PANTOPRAZOLE 40 MG VIAL IV SCH ×2 (08:01→20:14)
[2019-06-04] MEDS: TICAGRELOR 90 MG TABLET PO SCH ×2 (08:02→20:09)
[2019-06-04] MEDS: ASPIRIN CHEW 81 MG TABLET PO SCH (08:02)
[2019-06-04] MEDS: METOPROLOL TARTRATE 50 MG TABLET PO SCH ×2 (08:02→20:08)
[2019-06-04] MEDS: POTASSIUM CHLORIDE 20 MEQ/15 ML UDCUP PO SCH ×2 (09:52→20:15)
[2019-06-04] MEDS: SODIUM CHLORIDE 0.9% 1,000 ML IV SCH ×2 (10:29→23:55)
[2019-06-04] MEDS: ROSUVASTATIN 20 MG TABLET PO SCH (20:07)
[2019-06-04] MEDS: SERTRALINE 50 MG TABLET PO SCH (20:08)
[2019-06-04] MEDS ORDERED: FUROSEMIDE 40 MG/4 ML VIAL IV ONE (22:28)
[2019-06-04] MEDS ORDERED: FUROSEMIDE 40 MG/4 ML VIAL ONE (22:30)
[2019-06-05] MEDS: ALBUTEROL/IPRATROPIUM 3 ML NEB RESP TX SCH ×4 (01:10→19:42)
[2019-06-05] MEDS: DOBUTamine 500 MG/250 ML PREMIX IV SCH ×3 (02:03→23:29)
[2019-06-05] MEDS: LEVOFLOXACIN INJ 500 MG in PREMIX 1 EACH IV SCH (02:37)
[2019-06-05] MEDS: PHENYLEPHRINE DRIP 40 MG/250 ML PREMIX IV PRN ×2 (04:05→14:30)
[2019-06-05] MEDS: INSULIN REGULAR 100 UNIT/ML SUBCUT SCH ×7 (04:11→23:57)
[2019-06-05] MEDS: methylPREDNISolone SOD SUC 40 MG/1 ML VIAL IV SCH ×2 (05:35→19:00)
[2019-06-05 05:37] LABS: Basophils % 0.2 % (0.0-0.8); Hematocrit 37.8 VOL% (35.7-47.0); Hemoglobin 11.9 GM/DL (12.0-16.0); Immature Granulocytes % 1.2 %; Immature Granulocytes Absolute 0.31 #; Lymphocytes # 0.6 10*3/uL (1.4-4.0); Lymphocytes % 2.4 % (21.3-54.2); Mean Corpuscular HGB Conc 31.5 GM/DL (32-36); Mean Corpuscular Volume 97.4 FL (87-102); Mean Platelet Volume 13.2 FL (9.6-12.0); Monocytes % 3.4 % (1.7-12.7); NRBC # 0.09 10*3/uL; Neutrophils % 92.8 % (38.7-73.9); Platelet Count 182 T/CUMM (130-400); Red Blood Count 3.88 MC/CUMM (3.8-5.5); Red Cell Distribution Width 15.2 % (9.3-17.3); White Blood Count 26.2 T/CUMM (4-12)
[2019-06-05 05:59] LABS: Hypochromasia 1+; Lymphocytes 2 % (20-55); Macrocytosis Slight; Nucleated Red Blood Cells 1 (0-5); Platelet Estimate Adequate; Polychromasia Slight; Segmented Neutrophils 97 % (50-85); Total Cells Counted 100
[2019-06-05 06:13] LABS: Calcium 8.2 MG/DL (8.5-10.1)
[2019-06-05] MEDS: POTASSIUM CHLORIDE 20 MEQ/15 ML UDCUP PER TUBE PRN ×3 (06:26→19:04)
[2019-06-05] MEDS: AMIODARONE 200 MG TABLET PO SCH ×2 (08:31→20:58)
[2019-06-05] MEDS: ENOXAPARIN 40 MG/0.4 ML SYRINGE SUBCUT SCH (08:32)
[2019-06-05] MEDS: TICAGRELOR 90 MG TABLET PO SCH ×2 (08:32→20:58)
[2019-06-05] MEDS: ASPIRIN CHEW 81 MG TABLET PO SCH (08:32)
[2019-06-05] MEDS: METOPROLOL TARTRATE 50 MG TABLET PO SCH ×2 (08:32→20:58)
[2019-06-05] MEDS: POTASSIUM CHLORIDE 20 MEQ/15 ML UDCUP PO SCH ×2 (08:33→20:59)
[2019-06-05] MEDS: PANTOPRAZOLE 40 MG VIAL IV SCH ×2 (08:33→20:59)
[2019-06-05] MEDS ORDERED: FUROSEMIDE 40 MG/4 ML VIAL IV SCH (09:00)
[2019-06-05] MEDS: CLORAZEPATE 3.75 MG TABLET PO PRN ×2 (10:41→20:58)
[2019-06-05] MEDS: SERTRALINE 50 MG TABLET PO SCH (20:58)
[2019-06-05] MEDS: ROSUVASTATIN 20 MG TABLET PO SCH (20:58)
[2019-06-05] MEDS: ONDANSETRON 4 MG/2 ML VIAL IV PRN (21:20)
[2019-06-06] MEDS: PHENYLEPHRINE DRIP 40 MG/250 ML PREMIX IV PRN ×3 (00:10→18:09)
[2019-06-06] MEDS: ALBUTEROL/IPRATROPIUM 3 ML NEB RESP TX SCH ×4 (00:37→19:05)
[2019-06-06] MEDS: LEVOFLOXACIN INJ 500 MG in PREMIX 1 EACH IV SCH (02:58)
[2019-06-06 04:16] LABS: Basophils % 0.2 % (0.0-0.8); Hematocrit 34.5 VOL% (35.7-47.0); Immature Granulocytes % 1.3 %; Immature Granulocytes Absolute 0.33 #; Lymphocytes # 0.7 10*3/uL (1.4-4.0); Lymphocytes % 2.7 % (21.3-54.2); Mean Corpuscular HGB Conc 31.9 GM/DL (32-36); Mean Platelet Volume 13.3 FL (9.6-12.0); Monocytes % 3.4 % (1.7-12.7); NRBC # 0.03 10*3/uL; Neutrophils % 92.4 % (38.7-73.9); Platelet Count 180 T/CUMM (130-400); Red Blood Count 3.63 MC/CUMM (3.8-5.5); Red Cell Distribution Width 14.8 % (9.3-17.3); White Blood Count 26.1 T/CUMM (4-12)
[2019-06-06 04:30] LABS: Calcium 8.1 MG/DL (8.5-10.1); Osmolality,Calculated 286.7 MOS/KG (273-304)
[2019-06-06 04:36] LABS: Lymphocytes 4 % (20-55); Segmented Neutrophils 91 % (50-85); Total Cells Counted 100
[2019-06-06 04:37] LABS: Hypochromasia Slight; Macrocytosis Slight; Ovalocytes Slight; Platelet Estimate Adequate; Polychromasia Slight
[2019-06-06] MEDS: INSULIN REGULAR 100 UNIT/ML SUBCUT SCH ×5 (04:40→20:49)
[2019-06-06] MEDS: methylPREDNISolone SOD SUC 40 MG/1 ML VIAL IV SCH (06:14)
[2019-06-06] MEDS: FUROSEMIDE 40 MG/4 ML VIAL IV SCH ×2 (08:09→16:18)
[2019-06-06] MEDS: CLORAZEPATE 3.75 MG TABLET PO PRN ×2 (08:29→16:17)
[2019-06-06] MEDS: ASPIRIN CHEW 81 MG TABLET PO SCH (08:34)
[2019-06-06] MEDS: carvediloL 3.125 MG TABLET PO SCH ×2 (08:35→20:48)
[2019-06-06] MEDS: AMIODARONE 200 MG TABLET PO SCH ×2 (08:35→20:48)
[2019-06-06] MEDS: ENOXAPARIN 40 MG/0.4 ML SYRINGE SUBCUT SCH (08:35)
[2019-06-06] MEDS: TICAGRELOR 90 MG TABLET PO SCH ×2 (08:35→20:48)
[2019-06-06] MEDS: PANTOPRAZOLE 40 MG VIAL IV SCH ×2 (08:36→21:12)
[2019-06-06] MEDS: predniSONE 20 MG TABLET PO SCH (08:56)
[2019-06-06] MEDS: POTASSIUM CHLORIDE 20 MEQ TABLET PO SCH ×2 (08:56→20:47)
[2019-06-06] MEDS: ROSUVASTATIN 20 MG TABLET PO SCH (20:40)
[2019-06-06] MEDS: SERTRALINE 50 MG TABLET PO SCH (20:48)
[2019-06-06] MEDS: DOBUTamine 500 MG/250 ML PREMIX IV SCH (22:00)
[2019-06-07] MEDS: CLORAZEPATE 3.75 MG TABLET PO PRN ×3 (00:06→17:13)
[2019-06-07] MEDS: INSULIN REGULAR 100 UNIT/ML SUBCUT SCH ×6 (00:11→20:38)
[2019-06-07] MEDS: ALBUTEROL/IPRATROPIUM 3 ML NEB RESP TX SCH ×4 (01:58→18:58)
[2019-06-07 05:02] LABS: Basophils % 0.1 % (0.0-0.8); Eosinophils # 0.1 10*3/uL (0.0-0.87); Eosinophils % 0.3 % (0.00-10.9); Hematocrit 34.6 VOL% (35.7-47.0); Hemoglobin 11.7 GM/DL (12.0-16.0); Immature Granulocytes % 1.3 %; Immature Granulocytes Absolute 0.31 #; Lymphocytes # 2.7 10*3/uL (1.4-4.0); Lymphocytes % 11.3 % (21.3-54.2); Mean Corpuscular HGB Conc 33.8 GM/DL (32-36); Mean Corpuscular Volume 90.6 FL (87-102); Mean Platelet Volume 13.5 FL (9.6-12.0); Monocytes % 6.6 % (1.7-12.7); Neutrophils % 80.4 % (38.7-73.9); Platelet Count 173 T/CUMM (130-400); Red Blood Count 3.82 MC/CUMM (3.8-5.5); Red Cell Distribution Width 14.6 % (9.3-17.3); White Blood Count 24.2 T/CUMM (4-12)
[2019-06-07] MEDS: PHENYLEPHRINE DRIP 40 MG/250 ML PREMIX IV PRN ×2 (05:10→16:23)
[2019-06-07] MEDS: DOBUTamine 500 MG/250 ML PREMIX IV SCH ×2 (05:10→23:48)
[2019-06-07 05:23] LABS: Hypochromasia Slight; Macrocytosis Slight
[2019-06-07 05:24] LABS: Platelet Estimate Adequate
[2019-06-07 05:49] LABS: Calcium 8.4 MG/DL (8.5-10.1)
[2019-06-07] MEDS: POTASSIUM CHLORIDE 20 MEQ TABLET PO PRN ×5 (06:27→20:41)
[2019-06-07] MEDS: FUROSEMIDE 40 MG/4 ML VIAL IV SCH ×2 (07:48→16:18)
[2019-06-07] MEDS: TICAGRELOR 90 MG TABLET PO SCH ×2 (08:50→20:36)
[2019-06-07] MEDS: predniSONE 20 MG TABLET PO SCH (08:50)
[2019-06-07] MEDS: ENOXAPARIN 40 MG/0.4 ML SYRINGE SUBCUT SCH (08:50)
[2019-06-07] MEDS: AMIODARONE 200 MG TABLET PO SCH ×2 (08:50→20:36)
[2019-06-07] MEDS: carvediloL 3.125 MG TABLET PO SCH ×2 (08:50→20:36)
[2019-06-07] MEDS: ASPIRIN CHEW 81 MG TABLET PO SCH (08:50)
[2019-06-07] MEDS: POTASSIUM CHLORIDE 20 MEQ TABLET PO SCH ×2 (08:50→20:37)
[2019-06-07] MEDS: PANTOPRAZOLE 40 MG VIAL IV SCH ×2 (08:53→20:42)
[2019-06-07] MEDS: SERTRALINE 50 MG TABLET PO SCH (20:36)
[2019-06-07] MEDS: ROSUVASTATIN 20 MG TABLET PO SCH (20:36)
[2019-06-08] MEDS: INSULIN REGULAR 100 UNIT/ML SUBCUT SCH ×7 (00:20→23:52)
[2019-06-08] MEDS: ALBUTEROL/IPRATROPIUM 3 ML NEB RESP TX SCH ×4 (01:48→18:57)
[2019-06-08] MEDS: CLORAZEPATE 3.75 MG TABLET PO PRN ×3 (01:57→20:22)
[2019-06-08] MEDS: ENOXAPARIN 40 MG/0.4 ML SYRINGE SUBCUT SCH (08:45)
[2019-06-08] MEDS: PANTOPRAZOLE 40 MG VIAL IV SCH ×2 (08:45→20:24)
[2019-06-08] MEDS: ASPIRIN CHEW 81 MG TABLET PO SCH (08:46)
[2019-06-08] MEDS: FUROSEMIDE 40 MG/4 ML VIAL IV SCH ×2 (08:46→18:03)
[2019-06-08] MEDS: predniSONE 20 MG TABLET PO SCH (08:47)
[2019-06-08] MEDS: TICAGRELOR 90 MG TABLET PO SCH ×2 (08:47→20:22)
[2019-06-08] MEDS: AMIODARONE 200 MG TABLET PO SCH ×2 (08:47→20:22)
[2019-06-08] MEDS: carvediloL 3.125 MG TABLET PO SCH ×2 (08:47→20:22)
[2019-06-08] MEDS: POTASSIUM CHLORIDE 20 MEQ TABLET PO SCH ×2 (09:45→20:22)
[2019-06-08] MEDS: ACETAMINOPHEN 325 MG TABLET PO PRN (12:07)
[2019-06-08 12:10] LABS: Basophils % 0.2 % (0.0-0.8); Eosinophils # 0.1 10*3/uL (0.0-0.87); Eosinophils % 0.2 % (0.00-10.9); Hematocrit 39.5 VOL% (35.7-47.0); Hemoglobin 13.4 GM/DL (12.0-16.0); Immature Granulocytes % 2.1 %; Immature Granulocytes Absolute 0.55 #; Lymphocytes # 1.1 10*3/uL (1.4-4.0); Lymphocytes % 4.3 % (21.3-54.2); Mean Corpuscular HGB Conc 33.9 GM/DL (32-36); Mean Corpuscular Volume 92.1 FL (87-102); Mean Platelet Volume 13.1 FL (9.6-12.0); Monocytes % 5.5 % (1.7-12.7); Neutrophils % 87.7 % (38.7-73.9); Platelet Count 224 T/CUMM (130-400); Red Blood Count 4.29 MC/CUMM (3.8-5.5); Red Cell Distribution Width 14.7 % (9.3-17.3); White Blood Count 26.2 T/CUMM (4-12)
[2019-06-08 12:41] LABS: Band Neutrophils 1 % (0-10); Hypochromasia 1+; Lymphocytes 6 % (20-55); Segmented Neutrophils 88 % (50-85); Total Cells Counted 100
[2019-06-08 12:42] LABS: Calcium 8.1 MG/DL (8.5-10.1); Macrocytosis Slight; Osmolality,Calculated 272.8 MOS/KG (273-304); Platelet Estimate Normal
[2019-06-08] MEDS: POTASSIUM CHLORIDE 20 MEQ TABLET PO PRN ×3 (13:36→18:03)
[2019-06-08] MEDS: ROSUVASTATIN 20 MG TABLET PO SCH (20:22)
[2019-06-08] MEDS: SERTRALINE 50 MG TABLET PO SCH (20:22)
[2019-06-08] MEDS: DOBUTamine 500 MG/250 ML PREMIX IV SCH (21:12)
[2019-06-08] MEDS: PHENYLEPHRINE DRIP 40 MG/250 ML PREMIX IV PRN (21:13)
[2019-06-09] MEDS: ALBUTEROL/IPRATROPIUM 3 ML NEB RESP TX SCH ×2 (00:04→07:05)
[2019-06-09] MEDS: POTASSIUM CHLORIDE 20 MEQ TABLET PO PRN ×2 (00:41→04:40)
[2019-06-09 04:27] LABS: Basophils % 0.1 % (0.0-0.8); Eosinophils # 0.2 10*3/uL (0.0-0.87); Eosinophils % 0.9 % (0.00-10.9); Hematocrit 37.3 VOL% (35.7-47.0); Hemoglobin 12.5 GM/DL (12.0-16.0); Immature Granulocytes % 1.8 %; Immature Granulocytes Absolute 0.49 #; Lymphocytes % 11.3 % (21.3-54.2); Mean Corpuscular HGB Conc 33.5 GM/DL (32-36); Mean Corpuscular Volume 92.3 FL (87-102); Mean Platelet Volume 13.7 FL (9.6-12.0); Monocytes % 6.7 % (1.7-12.7); Neutrophils % 79.2 % (38.7-73.9); Platelet Count 245 T/CUMM (130-400); Red Blood Count 4.04 MC/CUMM (3.8-5.5); Red Cell Distribution Width 14.7 % (9.3-17.3); White Blood Count 26.6 T/CUMM (4-12)
[2019-06-09] MEDS: INSULIN REGULAR 100 UNIT/ML SUBCUT SCH ×5 (04:40→20:44)
[2019-06-09 04:41] LABS: Calcium 8.8 MG/DL (8.5-10.1); Osmolality,Calculated 274.5 MOS/KG (273-304)
[2019-06-09 04:59] LABS: Macrocytosis Slight; Platelet Estimate Adequate
[2019-06-09] MEDS: POTASSIUM CHLORIDE 20 MEQ TABLET PO SCH ×2 (08:06→21:33)
[2019-06-09] MEDS: ENOXAPARIN 40 MG/0.4 ML SYRINGE SUBCUT SCH (08:06)
[2019-06-09] MEDS: FUROSEMIDE 40 MG/4 ML VIAL IV SCH ×2 (08:07→16:08)
[2019-06-09] MEDS: predniSONE 20 MG TABLET PO SCH (08:07)
[2019-06-09] MEDS: carvediloL 3.125 MG TABLET PO SCH ×2 (08:07→21:34)
[2019-06-09] MEDS: TICAGRELOR 90 MG TABLET PO SCH ×2 (08:07→21:32)
[2019-06-09] MEDS: AMIODARONE 200 MG TABLET PO SCH ×2 (08:07→21:34)
[2019-06-09] MEDS: ASPIRIN CHEW 81 MG TABLET PO SCH (08:07)
[2019-06-09] MEDS: CLORAZEPATE 3.75 MG TABLET PO PRN ×2 (08:07→21:34)
[2019-06-09] MEDS: PANTOPRAZOLE 40 MG VIAL IV SCH ×2 (08:11→21:32)
[2019-06-09] MEDS: BUDESONIDE/FORMOTEROL 160-4.5 INHALER 6 GM INH SCH ×2 (08:12→21:32)
[2019-06-09] MEDS: ALBUTEROL/IPRATROPIUM 3 ML NEB RESP TX PRN ×2 (13:03→19:02)
[2019-06-09] MEDS: SERTRALINE 50 MG TABLET PO SCH (21:34)
[2019-06-09] MEDS: ROSUVASTATIN 20 MG TABLET PO SCH (21:34)
[2019-06-10] MEDS: DOBUTamine 500 MG/250 ML PREMIX IV SCH (00:15)
[2019-06-10] MEDS: INSULIN REGULAR 100 UNIT/ML SUBCUT SCH ×7 (00:16→23:33)
[2019-06-10] MEDS: ALBUTEROL/IPRATROPIUM 3 ML NEB RESP TX PRN (00:38)
[2019-06-10 04:01] LABS: Basophils % 0.1 % (0.0-0.8); Eosinophils # 0.3 10*3/uL (0.0-0.87); Eosinophils % 0.9 % (0.00-10.9); Hematocrit 37.5 VOL% (35.7-47.0); Hemoglobin 12.6 GM/DL (12.0-16.0); Immature Granulocytes % 1.8 %; Immature Granulocytes Absolute 0.51 #; Lymphocytes # 3.1 10*3/uL (1.4-4.0); Mean Corpuscular HGB Conc 33.6 GM/DL (32-36); Mean Corpuscular Volume 91.2 FL (87-102); Mean Platelet Volume 13.3 FL (9.6-12.0); Neutrophils % 80.2 % (38.7-73.9); Platelet Count 249 T/CUMM (130-400); Red Blood Count 4.11 MC/CUMM (3.8-5.5); Red Cell Distribution Width 15.1 % (9.3-17.3); White Blood Count 28.2 T/CUMM (4-12)
[2019-06-10 04:17] LABS: Calcium 9.1 MG/DL (8.5-10.1); Osmolality,Calculated 266.8 MOS/KG (273-304)
[2019-06-10 04:24] LABS: Atypical Lymphocytes Few; Band Neutrophils 1 % (0-10); Eosinophils 1 % (0-10); Hypochromasia Slight; Lymphocytes 16 % (20-55); Segmented Neutrophils 80 % (50-85); Total Cells Counted 100
[2019-06-10 04:25] LABS: Macrocytosis Slight
[2019-06-10] MEDS: FUROSEMIDE 40 MG/4 ML VIAL IV SCH ×2 (08:01→17:27)
[2019-06-10] MEDS: PANTOPRAZOLE 40 MG VIAL IV SCH ×2 (08:48→21:00)
[2019-06-10] MEDS: POTASSIUM CHLORIDE 20 MEQ TABLET PO SCH ×2 (08:48→20:57)
[2019-06-10] MEDS: ENOXAPARIN 40 MG/0.4 ML SYRINGE SUBCUT SCH (08:48)
[2019-06-10] MEDS: ASPIRIN CHEW 81 MG TABLET PO SCH (08:49)
[2019-06-10] MEDS: TICAGRELOR 90 MG TABLET PO SCH ×2 (08:49→20:58)
[2019-06-10] MEDS: AMIODARONE 200 MG TABLET PO SCH ×2 (08:49→21:00)
[2019-06-10] MEDS: BUDESONIDE/FORMOTEROL 160-4.5 INHALER 6 GM INH SCH ×2 (08:49→21:00)
[2019-06-10] MEDS: carvediloL 3.125 MG TABLET PO SCH ×2 (08:49→20:58)
[2019-06-10] MEDS: predniSONE 20 MG TABLET PO SCH (08:49)
[2019-06-10] MEDS: CLORAZEPATE 3.75 MG TABLET PO PRN ×2 (12:56→20:58)
[2019-06-10] MEDS: ROSUVASTATIN 20 MG TABLET PO SCH (20:59)
[2019-06-10] MEDS: SERTRALINE 50 MG TABLET PO SCH (21:00)
[2019-06-11] MEDS: DOBUTamine 500 MG/250 ML PREMIX IV SCH ×2 (00:47→21:07)
[2019-06-11] MEDS: INSULIN REGULAR 100 UNIT/ML SUBCUT SCH ×5 (03:55→20:50)
[2019-06-11 04:27] LABS: Basophils % 0.1 % (0.0-0.8); Eosinophils # 0.1 10*3/uL (0.0-0.87); Eosinophils % 0.4 % (0.00-10.9); Hematocrit 35.5 VOL% (35.7-47.0); Hemoglobin 11.8 GM/DL (12.0-16.0); Immature Granulocytes % 1.7 %; Immature Granulocytes Absolute 0.39 #; Lymphocytes % 13.2 % (21.3-54.2); Mean Corpuscular HGB Conc 33.2 GM/DL (32-36); Mean Corpuscular Volume 92.7 FL (87-102); Mean Platelet Volume 13.2 FL (9.6-12.0); Monocytes % 6.4 % (1.7-12.7); Neutrophils % 78.2 % (38.7-73.9); Platelet Count 249 T/CUMM (130-400); Red Blood Count 3.83 MC/CUMM (3.8-5.5); Red Cell Distribution Width 14.9 % (9.3-17.3); White Blood Count 22.5 T/CUMM (4-12)
[2019-06-11 04:41] LABS: Calcium 9.3 MG/DL (8.5-10.1); Osmolality,Calculated 267.8 MOS/KG (273-304)
[2019-06-11 05:07] LABS: Eosinophils 3 % (0-10); Lymphocytes 14 % (20-55); Platelet Estimate Adequate; Segmented Neutrophils 78 % (50-85); Total Cells Counted 100
[2019-06-11 05:08] LABS: Hypochromasia Slight; Macrocytosis Slight
[2019-06-11] MEDS: PANTOPRAZOLE 40 MG VIAL IV SCH ×2 (08:09→20:50)
[2019-06-11] MEDS: ASPIRIN CHEW 81 MG TABLET PO SCH (08:10)
[2019-06-11] MEDS: POTASSIUM CHLORIDE 20 MEQ TABLET PO SCH ×2 (08:10→20:51)
[2019-06-11] MEDS: ENOXAPARIN 40 MG/0.4 ML SYRINGE SUBCUT SCH (08:10)
[2019-06-11] MEDS: BUDESONIDE/FORMOTEROL 160-4.5 INHALER 6 GM INH SCH ×2 (08:10→20:54)
[2019-06-11] MEDS: AMIODARONE 200 MG TABLET PO SCH ×2 (08:10→20:51)
[2019-06-11] MEDS: FUROSEMIDE 40 MG/4 ML VIAL IV SCH ×2 (08:10→16:57)
[2019-06-11] MEDS: TICAGRELOR 90 MG TABLET PO SCH ×2 (08:10→20:51)
[2019-06-11] MEDS: predniSONE 20 MG TABLET PO SCH (08:10)
[2019-06-11] MEDS: carvediloL 3.125 MG TABLET PO SCH ×2 (08:10→20:51)
[2019-06-11] MEDS: CLORAZEPATE 3.75 MG TABLET PO PRN ×2 (08:13→17:54)
[2019-06-11] MEDS ORDERED: VANCOMYCIN INJ 1,000 MG in SODIUM CHLORIDE 0.9% 250 ML IV ONE (11:36)
[2019-06-11] MEDS: VANCOMYCIN INJ 1,000 MG in SODIUM CHLORIDE 0.9% 250 ML IV SCH (14:03)
[2019-06-11] MEDS: ROSUVASTATIN 20 MG TABLET PO SCH (20:51)
[2019-06-11] MEDS: SERTRALINE 50 MG TABLET PO SCH (20:51)
[2019-06-12] MEDS: INSULIN REGULAR 100 UNIT/ML SUBCUT SCH ×6 (00:20→20:54)
[2019-06-12] MEDS: VANCOMYCIN INJ 1,000 MG in SODIUM CHLORIDE 0.9% 250 ML IV SCH ×2 (00:20→14:36)
[2019-06-12 03:39] LABS: Basophils % 0.2 % (0.0-0.8); Eosinophils # 0.1 10*3/uL (0.0-0.87); Eosinophils % 0.7 % (0.00-10.9); Hemoglobin 11.4 GM/DL (12.0-16.0); Immature Granulocytes Absolute 0.39 #; Lymphocytes # 1.9 10*3/uL (1.4-4.0); Lymphocytes % 9.6 % (21.3-54.2); Mean Corpuscular HGB Conc 34.5 GM/DL (32-36); Mean Corpuscular Volume 90.4 FL (87-102); Mean Platelet Volume 12.9 FL (9.6-12.0); Monocytes % 6.1 % (1.7-12.7); Neutrophils % 81.4 % (38.7-73.9); Platelet Count 248 T/CUMM (130-400); Red Blood Count 3.65 MC/CUMM (3.8-5.5); Red Cell Distribution Width 14.8 % (9.3-17.3); White Blood Count 19.9 T/CUMM (4-12)
[2019-06-12 03:58] LABS: Calcium 8.7 MG/DL (8.5-10.1); Osmolality,Calculated 264.8 MOS/KG (273-304)
[2019-06-12] MEDS: CLORAZEPATE 3.75 MG TABLET PO PRN ×2 (07:41→20:55)
[2019-06-12] MEDS ORDERED: BUPIVACAINE MPF 0.25% 30 ML VIAL ONE (09:25)
[2019-06-12] MEDS ORDERED: LIDOCAINE 1%/EPI INJ 20 ML VIAL ONE (09:25)
[2019-06-12] MEDS ORDERED: MIDAZOLAM 2 MG/2 ML VIAL ONE (10:42)
[2019-06-12] MEDS ORDERED: SODIUM CHLORIDE 0.9% 100 ML IV ONE (10:42)
[2019-06-12] MEDS ORDERED: propofoL 200 MG/20 ML VIAL IV ONE (10:42)
[2019-06-12] MEDS ORDERED: ETOMIDATE 40 MG/20 ML VIAL IV ONE (10:42)
[2019-06-12] MEDS: ASPIRIN CHEW 81 MG TABLET PO SCH (12:20)
[2019-06-12] MEDS: AMIODARONE 200 MG TABLET PO SCH ×2 (12:20→20:55)
[2019-06-12] MEDS: predniSONE 20 MG TABLET PO SCH (12:20)
[2019-06-12] MEDS: TICAGRELOR 90 MG TABLET PO SCH ×2 (12:20→20:55)
[2019-06-12] MEDS: carvediloL 3.125 MG TABLET PO SCH ×2 (12:20→20:55)
[2019-06-12] MEDS: POTASSIUM CHLORIDE 20 MEQ TABLET PO SCH ×2 (12:20→20:55)
[2019-06-12] MEDS: PANTOPRAZOLE 40 MG VIAL IV SCH ×2 (12:21→20:54)
[2019-06-12] MEDS: BUDESONIDE/FORMOTEROL 160-4.5 INHALER 6 GM INH SCH ×2 (12:22→20:55)
[2019-06-12] MEDS: ENOXAPARIN 40 MG/0.4 ML SYRINGE SUBCUT SCH (12:22)
[2019-06-12] MEDS: FUROSEMIDE 40 MG/4 ML VIAL IV SCH ×2 (12:55→16:15)
[2019-06-12] MEDS ORDERED: SODIUM CHLORIDE 0.9% 500 ML IV ONE (14:35)
[2019-06-12] MEDS: MAGNESIUM HYDROXIDE SUSP 30 ML UDCUP PO PRN (18:25)
[2019-06-12] MEDS: PHENYLEPHRINE DRIP 40 MG/250 ML PREMIX IV PRN (18:25)
[2019-06-12] MEDS: ROSUVASTATIN 20 MG TABLET PO SCH (20:54)
[2019-06-12] MEDS: SERTRALINE 50 MG TABLET PO SCH (20:55)
[2019-06-12] MEDS: DOBUTamine 500 MG/250 ML PREMIX IV SCH (22:34)
[2019-06-13] MEDS: INSULIN REGULAR 100 UNIT/ML SUBCUT SCH ×6 (02:42→20:29)
[2019-06-13] MEDS: VANCOMYCIN INJ 1,000 MG in SODIUM CHLORIDE 0.9% 250 ML IV SCH ×2 (02:45→14:10)
[2019-06-13 07:01] LABS: Basophils % 0.2 % (0.0-0.8); Eosinophils # 0.1 10*3/uL (0.0-0.87); Eosinophils % 0.3 % (0.00-10.9); Hematocrit 28.6 VOL% (35.7-47.0); Hemoglobin 9.4 GM/DL (12.0-16.0); Immature Granulocytes % 1.8 %; Immature Granulocytes Absolute 0.32 #; Lymphocytes # 2.4 10*3/uL (1.4-4.0); Lymphocytes % 13.6 % (21.3-54.2); Mean Corpuscular HGB Conc 32.9 GM/DL (32-36); Mean Corpuscular Volume 93.8 FL (87-102); Mean Platelet Volume 12.8 FL (9.6-12.0); Monocytes % 5.4 % (1.7-12.7); Neutrophils % 78.7 % (38.7-73.9); Platelet Count 252 T/CUMM (130-400); Red Blood Count 3.05 MC/CUMM (3.8-5.5); Red Cell Distribution Width 15.5 % (9.3-17.3); White Blood Count 17.9 T/CUMM (4-12)
[2019-06-13 07:27] LABS: Calcium 8.6 MG/DL (8.5-10.1); Osmolality,Calculated 267.4 MOS/KG (273-304)
[2019-06-13] MEDS: FUROSEMIDE 40 MG/4 ML VIAL IV SCH ×2 (08:57→16:22)
[2019-06-13] MEDS: predniSONE 20 MG TABLET PO SCH (09:38)
[2019-06-13] MEDS: carvediloL 3.125 MG TABLET PO SCH ×2 (09:38→20:32)
[2019-06-13] MEDS: TICAGRELOR 90 MG TABLET PO SCH ×2 (09:38→20:30)
[2019-06-13] MEDS: ENOXAPARIN 40 MG/0.4 ML SYRINGE SUBCUT SCH (09:38)
[2019-06-13] MEDS: AMIODARONE 200 MG TABLET PO SCH ×2 (09:38→20:30)
[2019-06-13] MEDS: POTASSIUM CHLORIDE 20 MEQ TABLET PO SCH ×2 (09:38→20:30)
[2019-06-13] MEDS: ASPIRIN CHEW 81 MG TABLET PO SCH (09:38)
[2019-06-13] MEDS: PANTOPRAZOLE 40 MG VIAL IV SCH ×2 (09:39→20:32)
[2019-06-13] MEDS: BUDESONIDE/FORMOTEROL 160-4.5 INHALER 6 GM INH SCH ×2 (09:41→20:32)
[2019-06-13] MEDS: CLORAZEPATE 3.75 MG TABLET PO PRN ×2 (09:41→20:30)
[2019-06-13] MEDS: PHENYLEPHRINE DRIP 40 MG/250 ML PREMIX IV PRN ×3 (11:26→21:00)
[2019-06-13] MEDS: ALBUTEROL 1.25 MG/3 ML NEB RESP TX PRN (15:16)
[2019-06-13] MEDS: MAGNESIUM HYDROXIDE SUSP 30 ML UDCUP PO PRN (18:05)
[2019-06-13] MEDS: ROSUVASTATIN 20 MG TABLET PO SCH (20:30)
[2019-06-13] MEDS: SERTRALINE 50 MG TABLET PO SCH (20:30)
[2019-06-13] MEDS: diphenhydrAMINE CAP 25 MG CAPSULE PO PRN (20:31)
[2019-06-13] MEDS: DOBUTamine 500 MG/250 ML PREMIX IV SCH (23:18)
[2019-06-14] MEDS: INSULIN REGULAR 100 UNIT/ML SUBCUT SCH ×6 (01:09→21:33)
[2019-06-14] MEDS: VANCOMYCIN INJ 1,000 MG in SODIUM CHLORIDE 0.9% 250 ML IV SCH ×2 (01:09→14:00)
[2019-06-14] MEDS: PHENYLEPHRINE DRIP 40 MG/250 ML PREMIX IV PRN ×5 (01:10→21:48)
[2019-06-14 06:18] LABS: Calcium 8.4 MG/DL (8.5-10.1); Osmolality,Calculated 270.1 MOS/KG (273-304)
[2019-06-14] MEDS: ASPIRIN CHEW 81 MG TABLET PO SCH (09:56)
[2019-06-14] MEDS: AMIODARONE 200 MG TABLET PO SCH ×2 (09:56→21:31)
[2019-06-14] MEDS: FUROSEMIDE 40 MG/4 ML VIAL IV SCH ×2 (09:56→17:11)
[2019-06-14] MEDS: TICAGRELOR 90 MG TABLET PO SCH ×2 (09:56→21:32)
[2019-06-14] MEDS: carvediloL 3.125 MG TABLET PO SCH ×2 (09:56→21:32)
[2019-06-14] MEDS: predniSONE 20 MG TABLET PO SCH (09:57)
[2019-06-14] MEDS: PANTOPRAZOLE 40 MG VIAL IV SCH ×2 (09:57→21:32)
[2019-06-14] MEDS: POTASSIUM CHLORIDE 20 MEQ TABLET PO SCH ×2 (09:57→21:32)
[2019-06-14] MEDS: ENOXAPARIN 40 MG/0.4 ML SYRINGE SUBCUT SCH (09:57)
[2019-06-14] MEDS: BUDESONIDE/FORMOTEROL 160-4.5 INHALER 6 GM INH SCH ×2 (10:28→21:35)
[2019-06-14] MEDS: CLORAZEPATE 3.75 MG TABLET PO PRN ×2 (12:40→21:40)
[2019-06-14] MEDS: ROSUVASTATIN 20 MG TABLET PO SCH (21:32)
[2019-06-14] MEDS: SERTRALINE 50 MG TABLET PO SCH (21:36)
[2019-06-14] MEDS: DOBUTamine 500 MG/250 ML PREMIX IV SCH (23:07)
[2019-06-15] MEDS: INSULIN REGULAR 100 UNIT/ML SUBCUT SCH ×6 (01:26→20:41)
[2019-06-15] MEDS: VANCOMYCIN INJ 1,000 MG in SODIUM CHLORIDE 0.9% 250 ML IV SCH ×2 (01:39→14:07)
[2019-06-15] MEDS: PHENYLEPHRINE DRIP 40 MG/250 ML PREMIX IV PRN ×5 (03:31→20:55)
[2019-06-15] MEDS: FUROSEMIDE 40 MG/4 ML VIAL IV SCH (08:17)
[2019-06-15] MEDS: PANTOPRAZOLE 40 MG VIAL IV SCH ×2 (08:17→20:46)
[2019-06-15] MEDS: ENOXAPARIN 40 MG/0.4 ML SYRINGE SUBCUT SCH (08:17)
[2019-06-15] MEDS: POTASSIUM CHLORIDE 20 MEQ TABLET PO SCH ×2 (08:18→20:44)
[2019-06-15] MEDS: ASPIRIN CHEW 81 MG TABLET PO SCH (08:18)
[2019-06-15] MEDS: AMIODARONE 200 MG TABLET PO SCH ×2 (08:18→20:42)
[2019-06-15] MEDS: carvediloL 3.125 MG TABLET PO SCH ×2 (08:18→20:43)
[2019-06-15] MEDS: TICAGRELOR 90 MG TABLET PO SCH ×2 (08:18→20:43)
[2019-06-15] MEDS: predniSONE 20 MG TABLET PO SCH (08:18)
[2019-06-15] MEDS: BUDESONIDE/FORMOTEROL 160-4.5 INHALER 6 GM INH SCH ×2 (08:19→20:46)
[2019-06-15 09:06] LABS: Basophils # 0.1 10*3/uL (0.0-0.2); Basophils % 0.2 % (0.0-0.8); Eosinophils # 0.1 10*3/uL (0.0-0.87); Eosinophils % 0.3 % (0.00-10.9); Hematocrit 29.1 VOL% (35.7-47.0); Hemoglobin 9.5 GM/DL (12.0-16.0); Immature Granulocytes % 0.9 %; Immature Granulocytes Absolute 0.18 #; Lymphocytes # 2.9 10*3/uL (1.4-4.0); Lymphocytes % 14.2 % (21.3-54.2); Mean Corpuscular HGB Conc 32.6 GM/DL (32-36); Mean Corpuscular Volume 95.1 FL (87-102); Mean Platelet Volume 12.8 FL (9.6-12.0); Monocytes % 3.8 % (1.7-12.7); Neutrophils % 80.6 % (38.7-73.9); Platelet Count 262 T/CUMM (130-400); Red Blood Count 3.06 MC/CUMM (3.8-5.5); Red Cell Distribution Width 16.7 % (9.3-17.3)
[2019-06-15 10:54] LABS: Calcium 8.2 MG/DL (8.5-10.1)
[2019-06-15 10:55] LABS: Osmolality,Calculated 265.4 MOS/KG (273-304)
[2019-06-15] MEDS ORDERED: SODIUM CHLORIDE 0.9% 500 ML IV ONE (11:00)
[2019-06-15 11:38] LABS: Anisocytosis 2+; Microcytosis 1+
[2019-06-15 11:39] LABS: Macrocytosis Slight; Ovalocytes Few; Polychromasia Slight; Tear Drop Cells Slight
[2019-06-15 11:40] LABS: Platelet Estimate Normal
[2019-06-15] MEDS: CLORAZEPATE 3.75 MG TABLET PO PRN (14:07)
[2019-06-15] MEDS: ASCORBIC ACID 500 MG TABLET PO SCH ×2 (14:07→20:44)
[2019-06-15] MEDS: ROSUVASTATIN 20 MG TABLET PO SCH (20:42)
[2019-06-15] MEDS: SERTRALINE 50 MG TABLET PO SCH (20:46)
[2019-06-15] MEDS: DOBUTamine 500 MG/250 ML PREMIX IV SCH (23:48)
[2019-06-16] MEDS: INSULIN REGULAR 100 UNIT/ML SUBCUT SCH ×6 (00:10→21:07)
[2019-06-16] MEDS: VANCOMYCIN INJ 1,000 MG in SODIUM CHLORIDE 0.9% 250 ML IV SCH ×2 (00:18→14:22)
[2019-06-16] MEDS: PHENYLEPHRINE DRIP 40 MG/250 ML PREMIX IV PRN ×4 (01:28→15:00)
[2019-06-16 04:51] LABS: Basophils # 0.1 10*3/uL (0.0-0.2); Basophils % 0.3 % (0.0-0.8); Eosinophils # 0.1 10*3/uL (0.0-0.87); Eosinophils % 0.3 % (0.00-10.9); Hematocrit 26.9 VOL% (35.7-47.0); Hemoglobin 8.5 GM/DL (12.0-16.0); Immature Granulocytes % 0.7 %; Immature Granulocytes Absolute 0.13 #; Lymphocytes # 3.1 10*3/uL (1.4-4.0); Lymphocytes % 17.7 % (21.3-54.2); Mean Corpuscular HGB Conc 31.6 GM/DL (32-36); Mean Corpuscular Volume 97.8 FL (87-102); Mean Platelet Volume 12.4 FL (9.6-12.0); Monocytes % 3.5 % (1.7-12.7); Neutrophils % 77.5 % (38.7-73.9); Platelet Count 226 T/CUMM (130-400); Red Blood Count 2.75 MC/CUMM (3.8-5.5); Red Cell Distribution Width 16.7 % (9.3-17.3); White Blood Count 17.4 T/CUMM (4-12)
[2019-06-16 05:14] LABS: Calcium 8.2 MG/DL (8.5-10.1)
[2019-06-16] MEDS: POTASSIUM CHLORIDE 20 MEQ TABLET PO PRN (06:13)
[2019-06-16] MEDS: ASCORBIC ACID 500 MG TABLET PO SCH ×2 (08:36→21:06)
[2019-06-16] MEDS: POTASSIUM CHLORIDE 20 MEQ TABLET PO SCH ×2 (08:37→21:06)
[2019-06-16] MEDS: TICAGRELOR 90 MG TABLET PO SCH ×2 (08:38→21:06)
[2019-06-16] MEDS: ASPIRIN CHEW 81 MG TABLET PO SCH (08:38)
[2019-06-16] MEDS: AMIODARONE 200 MG TABLET PO SCH ×2 (08:39→21:06)
[2019-06-16] MEDS: predniSONE 20 MG TABLET PO SCH (08:39)
[2019-06-16] MEDS: BUDESONIDE/FORMOTEROL 160-4.5 INHALER 6 GM INH SCH ×2 (08:40→21:07)
[2019-06-16] MEDS: CLORAZEPATE 3.75 MG TABLET PO PRN ×2 (08:48→21:06)
[2019-06-16] MEDS: PANTOPRAZOLE 40 MG VIAL IV SCH ×2 (08:48→21:07)
[2019-06-16] MEDS: ENOXAPARIN 40 MG/0.4 ML SYRINGE SUBCUT SCH (08:48)
[2019-06-16] MEDS ORDERED: FUROSEMIDE 40 MG TABLET PO SCH (09:00)
[2019-06-16] MEDS: SODIUM CHLORIDE 0.9% 1,000 ML IV SCH ×2 (11:26→19:34)
[2019-06-16] MEDS: SERTRALINE 50 MG TABLET PO SCH (21:06)
[2019-06-16] MEDS: ROSUVASTATIN 20 MG TABLET PO SCH (21:06)
[2019-06-17] MEDS: PHENYLEPHRINE DRIP 40 MG/250 ML PREMIX IV PRN ×2 (00:21→10:27)
[2019-06-17] MEDS: DOBUTamine 500 MG/250 ML PREMIX IV SCH ×2 (00:24→23:06)
[2019-06-17] MEDS: SODIUM CHLORIDE 0.9% 1,000 ML IV SCH ×4 (00:24→20:44)
[2019-06-17] MEDS: INSULIN REGULAR 100 UNIT/ML SUBCUT SCH ×6 (00:25→20:38)
[2019-06-17] MEDS: ACETAMINOPHEN 325 MG TABLET PO PRN (01:05)
[2019-06-17] MEDS: PANTOPRAZOLE 40 MG VIAL IV SCH ×2 (09:01→20:39)
[2019-06-17] MEDS: ASPIRIN CHEW 81 MG TABLET PO SCH (09:02)
[2019-06-17] MEDS: POTASSIUM CHLORIDE 20 MEQ TABLET PO SCH ×2 (09:02→20:39)
[2019-06-17] MEDS: TICAGRELOR 90 MG TABLET PO SCH ×2 (09:02→20:39)
[2019-06-17] MEDS: ENOXAPARIN 40 MG/0.4 ML SYRINGE SUBCUT SCH (09:02)
[2019-06-17] MEDS: predniSONE 20 MG TABLET PO SCH (09:02)
[2019-06-17] MEDS: AMIODARONE 200 MG TABLET PO SCH ×2 (09:02→20:40)
[2019-06-17] MEDS: ASCORBIC ACID 500 MG TABLET PO SCH ×2 (09:02→20:39)
[2019-06-17] MEDS: BUDESONIDE/FORMOTEROL 160-4.5 INHALER 6 GM INH SCH ×2 (09:03→20:46)
[2019-06-17] MEDS: CLORAZEPATE 3.75 MG TABLET PO PRN ×2 (09:08→17:49)
[2019-06-17 13:05] LABS: Basophils % 0.3 % (0.0-0.8); Eosinophils % 0.1 % (0.00-10.9); Hematocrit 29.5 VOL% (35.7-47.0); Hemoglobin 9.3 GM/DL (12.0-16.0); Immature Granulocytes % 0.5 %; Immature Granulocytes Absolute 0.07 #; Lymphocytes # 0.6 10*3/uL (1.4-4.0); Lymphocytes % 4.3 % (21.3-54.2); Mean Corpuscular HGB Conc 31.5 GM/DL (32-36); Mean Corpuscular Volume 98.7 FL (87-102); Monocytes % 1.6 % (1.7-12.7); Neutrophils % 93.2 % (38.7-73.9); Platelet Count 187 T/CUMM (130-400); Red Blood Count 2.99 MC/CUMM (3.8-5.5); Red Cell Distribution Width 17.2 % (9.3-17.3)
[2019-06-17 13:21] LABS: Calcium 8.1 MG/DL (8.5-10.1); Osmolality,Calculated 278.5 MOS/KG (273-304)
[2019-06-17 15:50] LABS: Band Neutrophils 2 % (0-10); Lymphocytes 5 % (20-55); Macrocytosis 1+; Segmented Neutrophils 93 % (50-85); Total Cells Counted 100
[2019-06-17 15:51] LABS: Platelet Estimate Normal; Polychromasia Slight
[2019-06-17] MEDS: SERTRALINE 50 MG TABLET PO SCH (20:39)
[2019-06-17] MEDS: ROSUVASTATIN 20 MG TABLET PO SCH (20:41)
[2019-06-18] MEDS: INSULIN REGULAR 100 UNIT/ML SUBCUT SCH ×6 (00:36→20:30)
[2019-06-18] MEDS ORDERED: FUROSEMIDE 40 MG/4 ML VIAL IV STA (01:27)
[2019-06-18] MEDS ORDERED: FUROSEMIDE 40 MG/4 ML VIAL ONE (01:29)
[2019-06-18] MEDS ORDERED: FUROSEMIDE 40 MG/4 ML VIAL IV ONE (02:04)
[2019-06-18] MEDS ORDERED: LORazepam 2 MG/1 ML VIAL IV PRN (02:09)
[2019-06-18] MEDS ORDERED: ETOMIDATE 20 MG/10 ML VIAL IV ONE (02:10)
[2019-06-18] MEDS ORDERED: VECURONIUM 10 MG VIAL IV ONE (02:10)
[2019-06-18] MEDS ORDERED: FUROSEMIDE 20 MG/2 ML VIAL IV STA (02:14)
[2019-06-18 03:11] LABS: ABG Base Excess -9.4 MMOL/L (-2.5-2.5); ABG HCO3 16.8 MMOL/L (20-26); ABG Oxygen Saturation 88.7 % (95-100); ABG PCO2 36.9 MM HG (35-48); ABG PH 7.269 (7.35-7.45); ABG TCO2 15.5 MMOL/L (23-27); Allen Test Positive; Pt O2 Delivery Device BIPAP
[2019-06-18 05:26] LABS: Apearance,Urine CLEAR (Clear); Bacteria,Urine Occasional /HPF (Few); Bilirubin,Urine Negative (Negative); Blood, Urine Negative (Negative); Glucose,Urine (UA) Negative (Negative); Ketones,Urine Negative (Negative); Mucus,Urine Occasional /LPF (Occasional); Nitrite,Urine Negative (Negative); Protein,Urine Negative; RBC,Urine 3 /HPF (0-4); Squamous Epithelial Cell,Urine Occasional /HPF (0-10); Urine Color Straw (Yellow); Urine Specific Gravity 1.004 (1.001-1.035); Urine Urobilinogen < 2.0 EU/DL (0.2-1.0); WBC,Urine 1 /HPF (0-6)
[2019-06-18 06:00] LABS: ABG Base Excess -2.1 MMOL/L (-2.5-2.5); ABG HCO3 21.6 MMOL/L (20-26); ABG Oxygen Saturation 97.9 % (95-100); ABG PCO2 33.4 MM HG (35-48); ABG PH 7.428 (7.35-7.45); ABG PO2 108.4 MM HG (80-95); ABG TCO2 22.6 MMOL/L (23-27); Allen Test Positive; Pt O2 Delivery Device BIPAP
[2019-06-18 06:08] LABS: Basophils % 0.1 % (0.0-0.8); Hematocrit 39.2 VOL% (35.7-47.0); Hemoglobin 12.2 GM/DL (12.0-16.0); Immature Granulocytes Absolute 0.21 #; Lymphocytes # 1.2 10*3/uL (1.4-4.0); Lymphocytes % 5.7 % (21.3-54.2); Mean Corpuscular HGB Conc 31.1 GM/DL (32-36); Mean Corpuscular Volume 99.5 FL (87-102); Mean Platelet Volume 11.9 FL (9.6-12.0); Monocytes % 3.1 % (1.7-12.7); Neutrophils % 90.1 % (38.7-73.9); Platelet Count 187 T/CUMM (130-400); Red Blood Count 3.94 MC/CUMM (3.8-5.5); Red Cell Distribution Width 17.3 % (9.3-17.3); White Blood Count 20.7 T/CUMM (4-12)
[2019-06-18 06:27] LABS: Calcium 8.9 MG/DL (8.5-10.1); Osmolality,Calculated 278.4 MOS/KG (273-304)
[2019-06-18 06:46] LABS: Anisocytosis 1+; Band Neutrophils 3 % (0-10); Lymphocytes 11 % (20-55); Myelocytes 1 %; Segmented Neutrophils 83 % (50-85); Total Cells Counted 100
[2019-06-18 06:47] LABS: Ovalocytes Few; Platelet Estimate Normal
[2019-06-18] MEDS: AMIODARONE 200 MG TABLET PO SCH ×2 (08:58→20:29)
[2019-06-18] MEDS: POTASSIUM CHLORIDE 20 MEQ TABLET PO SCH ×2 (08:58→20:29)
[2019-06-18] MEDS: TICAGRELOR 90 MG TABLET PO SCH ×2 (08:59→20:29)
[2019-06-18] MEDS: PANTOPRAZOLE 40 MG VIAL IV SCH ×2 (08:59→20:29)
[2019-06-18] MEDS: ASPIRIN CHEW 81 MG TABLET PO SCH (08:59)
[2019-06-18] MEDS: predniSONE 20 MG TABLET PO SCH (08:59)
[2019-06-18] MEDS: ENOXAPARIN 40 MG/0.4 ML SYRINGE SUBCUT SCH (08:59)
[2019-06-18] MEDS: ASCORBIC ACID 500 MG TABLET PO SCH ×2 (08:59→20:29)
[2019-06-18] MEDS: CLORAZEPATE 3.75 MG TABLET PO PRN ×2 (09:05→20:28)
[2019-06-18] MEDS: FUROSEMIDE 40 MG/4 ML VIAL IV SCH ×2 (09:05→16:56)
[2019-06-18] MEDS: BUDESONIDE/FORMOTEROL 160-4.5 INHALER 6 GM INH SCH ×2 (09:17→20:30)
[2019-06-18] MEDS: SERTRALINE 50 MG TABLET PO SCH (20:28)
[2019-06-18] MEDS: ROSUVASTATIN 20 MG TABLET PO SCH (20:28)
[2019-06-19] MEDS: INSULIN REGULAR 100 UNIT/ML SUBCUT SCH ×6 (00:06→20:58)
[2019-06-19] MEDS: DOBUTamine 500 MG/250 ML PREMIX IV SCH ×2 (00:06→21:02)
[2019-06-19 05:06] LABS: Basophils # 0.1 10*3/uL (0.0-0.2); Basophils % 0.4 % (0.0-0.8); Eosinophils # 0.1 10*3/uL (0.0-0.87); Eosinophils % 0.6 % (0.00-10.9); Hematocrit 28.1 VOL% (35.7-47.0); Hemoglobin 9.2 GM/DL (12.0-16.0); Immature Granulocytes % 0.6 %; Immature Granulocytes Absolute 0.09 #; Lymphocytes % 14.6 % (21.3-54.2); Mean Corpuscular HGB Conc 32.7 GM/DL (32-36); Mean Corpuscular Volume 94.9 FL (87-102); Monocytes % 4.2 % (1.7-12.7); Neutrophils % 79.6 % (38.7-73.9); Platelet Count 165 T/CUMM (130-400); Red Blood Count 2.96 MC/CUMM (3.8-5.5); Red Cell Distribution Width 17.3 % (9.3-17.3); White Blood Count 13.9 T/CUMM (4-12)
[2019-06-19 05:18] LABS: Calcium 8.4 MG/DL (8.5-10.1); Osmolality,Calculated 272.8 MOS/KG (273-304)
[2019-06-19] MEDS: PHENYLEPHRINE DRIP 40 MG/250 ML PREMIX IV PRN (06:29)
[2019-06-19] MEDS: CLORAZEPATE 3.75 MG TABLET PO PRN ×2 (08:44→20:59)
[2019-06-19] MEDS: ASCORBIC ACID 500 MG TABLET PO SCH ×2 (08:45→21:01)
[2019-06-19] MEDS: AMIODARONE 200 MG TABLET PO SCH ×2 (08:45→21:01)
[2019-06-19] MEDS: predniSONE 20 MG TABLET PO SCH (08:45)
[2019-06-19] MEDS: ASPIRIN CHEW 81 MG TABLET PO SCH (08:45)
[2019-06-19] MEDS: TICAGRELOR 90 MG TABLET PO SCH ×2 (08:45→21:01)
[2019-06-19] MEDS: ENOXAPARIN 40 MG/0.4 ML SYRINGE SUBCUT SCH (08:46)
[2019-06-19] MEDS: POTASSIUM CHLORIDE 20 MEQ TABLET PO SCH ×2 (08:46→21:00)
[2019-06-19] MEDS: PANTOPRAZOLE 40 MG VIAL IV SCH ×2 (08:47→21:01)
[2019-06-19] MEDS: FUROSEMIDE 40 MG/4 ML VIAL IV SCH ×2 (08:48→15:33)
[2019-06-19] MEDS ORDERED: POTASSIUM CHLORIDE RIDER 10 MEQ in PREMIX 1 EACH IV PRN (08:52)
[2019-06-19] MEDS ORDERED: MAGNESIUM SULF RIDER 4 GM in PREMIX 1 EACH IV PRN (08:52)
[2019-06-19] MEDS ORDERED: MAGNESIUM SULF RIDER 2 GM in PREMIX 1 EACH IV PRN (08:52)
[2019-06-19] MEDS: BUDESONIDE/FORMOTEROL 160-4.5 INHALER 6 GM INH SCH ×2 (08:52→20:59)
[2019-06-19] MEDS ORDERED: MAGNESIUM SULF RIDER 2 GM in PREMIX 1 EACH IV ONE (09:00)
[2019-06-19] MEDS: POTASSIUM CHLORIDE 20 MEQ TABLET PO PRN ×4 (10:40→21:01)
[2019-06-19] MEDS: ROSUVASTATIN 20 MG TABLET PO SCH (21:00)
[2019-06-19] MEDS: SERTRALINE 50 MG TABLET PO SCH (21:01)
[2019-06-19] MEDS: MAGNESIUM HYDROXIDE SUSP 30 ML UDCUP PO PRN (21:01)
[2019-06-20] MEDS: INSULIN REGULAR 100 UNIT/ML SUBCUT SCH ×6 (00:38→21:07)
[2019-06-20 04:34] LABS: Basophils % 0.1 % (0.0-0.8); Eosinophils # 0.1 10*3/uL (0.0-0.87); Eosinophils % 0.9 % (0.00-10.9); Hemoglobin 9.2 GM/DL (12.0-16.0); Immature Granulocytes % 0.6 %; Immature Granulocytes Absolute 0.08 #; Lymphocytes # 1.6 10*3/uL (1.4-4.0); Lymphocytes % 11.6 % (21.3-54.2); Mean Corpuscular HGB Conc 32.9 GM/DL (32-36); Mean Corpuscular Volume 94.9 FL (87-102); Mean Platelet Volume 12.1 FL (9.6-12.0); Monocytes % 4.5 % (1.7-12.7); Neutrophils % 82.3 % (38.7-73.9); Platelet Count 199 T/CUMM (130-400); Red Blood Count 2.95 MC/CUMM (3.8-5.5); White Blood Count 13.8 T/CUMM (4-12)
[2019-06-20 04:52] LABS: Calcium 8.5 MG/DL (8.5-10.1)
[2019-06-20] MEDS: PHENYLEPHRINE DRIP 40 MG/250 ML PREMIX IV PRN (08:05)
[2019-06-20] MEDS: predniSONE 20 MG TABLET PO SCH (09:32)
[2019-06-20] MEDS: ASPIRIN CHEW 81 MG TABLET PO SCH (09:32)
[2019-06-20] MEDS: AMIODARONE 200 MG TABLET PO SCH ×2 (09:32→21:09)
[2019-06-20] MEDS: TICAGRELOR 90 MG TABLET PO SCH ×2 (09:32→21:09)
[2019-06-20] MEDS: ASCORBIC ACID 500 MG TABLET PO SCH ×2 (09:32→21:08)
[2019-06-20] MEDS: FUROSEMIDE 40 MG/4 ML VIAL IV SCH ×2 (09:33→17:16)
[2019-06-20] MEDS: ENOXAPARIN 40 MG/0.4 ML SYRINGE SUBCUT SCH (09:33)
[2019-06-20] MEDS: POTASSIUM CHLORIDE 20 MEQ TABLET PO SCH ×2 (09:33→21:08)
[2019-06-20] MEDS: PANTOPRAZOLE 40 MG VIAL IV SCH ×2 (09:33→21:07)
[2019-06-20] MEDS: BUDESONIDE/FORMOTEROL 160-4.5 INHALER 6 GM INH SCH ×2 (09:33→21:06)
[2019-06-20] MEDS: CLORAZEPATE 3.75 MG TABLET PO PRN ×2 (09:40→21:08)
[2019-06-20] MEDS: MAGNESIUM HYDROXIDE SUSP 30 ML UDCUP PO PRN (13:33)
[2019-06-20] MEDS: ROSUVASTATIN 20 MG TABLET PO SCH (21:08)
[2019-06-20] MEDS: DOBUTamine 500 MG/250 ML PREMIX IV SCH (21:09)
[2019-06-20] MEDS: SERTRALINE 50 MG TABLET PO SCH (21:09)
[2019-06-21] MEDS: INSULIN REGULAR 100 UNIT/ML SUBCUT SCH ×6 (01:16→21:14)
[2019-06-21 04:30] LABS: Calcium 8.7 MG/DL (8.5-10.1); Osmolality,Calculated 271.1 MOS/KG (273-304)
[2019-06-21 04:59] LABS: Basophils % 0.2 % (0.0-0.8); Eosinophils # 0.1 10*3/uL (0.0-0.87); Eosinophils % 1.2 % (0.00-10.9); Hematocrit 29.2 VOL% (35.7-47.0); Hemoglobin 9.4 GM/DL (12.0-16.0); Immature Granulocytes % 0.5 %; Immature Granulocytes Absolute 0.05 #; Lymphocytes # 1.5 10*3/uL (1.4-4.0); Lymphocytes % 15.9 % (21.3-54.2); Mean Corpuscular HGB Conc 32.2 GM/DL (32-36); Mean Corpuscular Volume 95.4 FL (87-102); Monocytes % 5.4 % (1.7-12.7); Neutrophils % 76.8 % (38.7-73.9); Platelet Count 202 T/CUMM (130-400); Red Blood Count 3.06 MC/CUMM (3.8-5.5); Red Cell Distribution Width 17.1 % (9.3-17.3); White Blood Count 9.3 T/CUMM (4-12)
[2019-06-21] MEDS: POTASSIUM CHLORIDE 20 MEQ TABLET PO SCH ×2 (09:22→21:15)
[2019-06-21] MEDS: CLORAZEPATE 3.75 MG TABLET PO PRN ×2 (09:22→21:15)
[2019-06-21] MEDS: ASCORBIC ACID 500 MG TABLET PO SCH ×2 (09:22→21:15)
[2019-06-21] MEDS: ASPIRIN CHEW 81 MG TABLET PO SCH (09:23)
[2019-06-21] MEDS: TICAGRELOR 90 MG TABLET PO SCH ×2 (09:23→21:15)
[2019-06-21] MEDS: predniSONE 20 MG TABLET PO SCH (09:23)
[2019-06-21] MEDS: AMIODARONE 200 MG TABLET PO SCH ×2 (09:23→21:15)
[2019-06-21] MEDS: FUROSEMIDE 40 MG/4 ML VIAL IV SCH ×2 (09:23→16:32)
[2019-06-21] MEDS: ENOXAPARIN 40 MG/0.4 ML SYRINGE SUBCUT SCH (09:23)
[2019-06-21] MEDS: PANTOPRAZOLE 40 MG VIAL IV SCH ×2 (09:23→21:14)
[2019-06-21] MEDS: BUDESONIDE/FORMOTEROL 160-4.5 INHALER 6 GM INH SCH ×2 (09:24→21:17)
[2019-06-21] MEDS: ROSUVASTATIN 20 MG TABLET PO SCH (21:14)
[2019-06-21] MEDS: SERTRALINE 50 MG TABLET PO SCH (21:15)
[2019-06-21] MEDS: DOBUTamine 500 MG/250 ML PREMIX IV SCH (21:28)
[2019-06-22] MEDS: INSULIN REGULAR 100 UNIT/ML SUBCUT SCH ×6 (02:44→20:20)
[2019-06-22 05:09] LABS: Basophils % 0.4 % (0.0-0.8); Eosinophils # 0.2 10*3/uL (0.0-0.87); Eosinophils % 2.1 % (0.00-10.9); Hematocrit 30.6 VOL% (35.7-47.0); Hemoglobin 9.9 GM/DL (12.0-16.0); Immature Granulocytes % 0.6 %; Immature Granulocytes Absolute 0.05 #; Lymphocytes # 1.7 10*3/uL (1.4-4.0); Lymphocytes % 19.6 % (21.3-54.2); Mean Corpuscular HGB Conc 32.4 GM/DL (32-36); Mean Corpuscular Volume 96.2 FL (87-102); Mean Platelet Volume 11.1 FL (9.6-12.0); Monocytes % 5.7 % (1.7-12.7); Neutrophils % 71.6 % (38.7-73.9); Platelet Count 243 T/CUMM (130-400); Red Blood Count 3.18 MC/CUMM (3.8-5.5); Red Cell Distribution Width 16.7 % (9.3-17.3); White Blood Count 8.4 T/CUMM (4-12)
[2019-06-22 05:42] LABS: Osmolality,Calculated 267.7 MOS/KG (273-304)
[2019-06-22] MEDS: ASPIRIN CHEW 81 MG TABLET PO SCH (10:30)
[2019-06-22] MEDS: AMIODARONE 200 MG TABLET PO SCH ×2 (10:30→20:18)
[2019-06-22] MEDS: FUROSEMIDE 40 MG/4 ML VIAL IV SCH ×2 (10:30→17:52)
[2019-06-22] MEDS: TICAGRELOR 90 MG TABLET PO SCH ×2 (10:30→20:18)
[2019-06-22] MEDS: POTASSIUM CHLORIDE 20 MEQ TABLET PO SCH ×2 (10:32→20:18)
[2019-06-22] MEDS: ENOXAPARIN 40 MG/0.4 ML SYRINGE SUBCUT SCH (10:32)
[2019-06-22] MEDS: predniSONE 20 MG TABLET PO SCH (10:33)
[2019-06-22] MEDS: BUDESONIDE/FORMOTEROL 160-4.5 INHALER 6 GM INH SCH ×2 (10:33→20:19)
[2019-06-22] MEDS: PANTOPRAZOLE 40 MG VIAL IV SCH ×2 (10:33→20:18)
[2019-06-22] MEDS: ASCORBIC ACID 500 MG TABLET PO SCH ×2 (10:33→20:18)
[2019-06-22] MEDS: ROSUVASTATIN 20 MG TABLET PO SCH (20:18)
[2019-06-22] MEDS: SERTRALINE 50 MG TABLET PO SCH (20:19)
[2019-06-22] MEDS: CLORAZEPATE 3.75 MG TABLET PO PRN (20:36)
[2019-06-22] MEDS ORDERED: predniSONE 20 MG TABLET PO SCH (23:12)
[2019-06-22] MEDS ORDERED: PHENAZOPYRIDINE 95 MG TABLET PO PRN (23:24)
[2019-06-22] MEDS ORDERED: SIMVASTATIN 10 MG TABLET PO SCH (23:30)
[2019-06-22] MEDS ORDERED: oxyCODONE/ACETAMINOPHEN 5-325 MG TABLET PO PRN (23:40)
[2019-06-23] MEDS ORDERED: SULFAMETHOX/TRIMETHOPRIM 800-160 MG TABLET PO SCH
[2019-06-23] MEDS: INSULIN REGULAR 100 UNIT/ML SUBCUT SCH ×6 (00:04→21:23)
[2019-06-23] MEDS: METOPROLOL TARTRATE 50 MG TABLET PO SCH ×3 (00:44→09:10)
[2019-06-23] MEDS: ZALEPLON 5 MG CAPSULE PO SCH ×2 (00:45→21:23)
[2019-06-23] MEDS: CIPROFLOXACIN 500 MG TABLET PO SCH ×3 (00:45→21:22)
[2019-06-23 05:53] LABS: Basophils % 0.4 % (0.0-0.8); Eosinophils # 0.2 10*3/uL (0.0-0.87); Eosinophils % 2.5 % (0.00-10.9); Hematocrit 31.1 VOL% (35.7-47.0); Hemoglobin 10.2 GM/DL (12.0-16.0); Immature Granulocytes Absolute 0.08 #; Lymphocytes # 1.6 10*3/uL (1.4-4.0); Mean Corpuscular HGB Conc 32.8 GM/DL (32-36); Mean Corpuscular Volume 94.5 FL (87-102); Mean Platelet Volume 11.4 FL (9.6-12.0); Monocytes % 8.9 % (1.7-12.7); Neutrophils % 66.2 % (38.7-73.9); Platelet Count 248 T/CUMM (130-400); Red Blood Count 3.29 MC/CUMM (3.8-5.5); Red Cell Distribution Width 16.6 % (9.3-17.3); White Blood Count 7.6 T/CUMM (4-12)
[2019-06-23 06:11] LABS: Calcium 8.9 MG/DL (8.5-10.1)
[2019-06-23 06:12] LABS: Osmolality,Calculated 265.5 MOS/KG (273-304)
[2019-06-23] MEDS: FENOFIBRATE 145 MG TABLET PO SCH (08:49)
[2019-06-23] MEDS: FUROSEMIDE 40 MG/4 ML VIAL IV SCH (08:49)
[2019-06-23] MEDS: POTASSIUM CHLORIDE 20 MEQ TABLET PO SCH ×2 (08:50→21:22)
[2019-06-23] MEDS: TICAGRELOR 90 MG TABLET PO SCH ×2 (08:53→21:22)
[2019-06-23] MEDS: predniSONE 20 MG TABLET PO SCH ×3 (08:53→21:22)
[2019-06-23] MEDS: ASCORBIC ACID 500 MG TABLET PO SCH ×2 (08:53→21:22)
[2019-06-23] MEDS: ASPIRIN CHEW 81 MG TABLET PO SCH (08:53)
[2019-06-23] MEDS: SULFAMETHOX/TRIMETHOPRIM 800-160 MG TABLET PO SCH ×2 (08:54→21:23)
[2019-06-23] MEDS: ENOXAPARIN 40 MG/0.4 ML SYRINGE SUBCUT SCH (08:55)
[2019-06-23] MEDS: AMIODARONE 200 MG TABLET PO SCH ×2 (08:55→21:23)
[2019-06-23] MEDS: BUDESONIDE/FORMOTEROL 160-4.5 INHALER 6 GM INH SCH ×2 (08:55→21:24)
[2019-06-23] MEDS ORDERED: TICAGRELOR 90 MG TABLET PO SCH (09:00)
[2019-06-23] MEDS: FUROSEMIDE 40 MG TABLET PO SCH (09:31)
[2019-06-23] MEDS: CLORAZEPATE 3.75 MG TABLET PO PRN ×2 (09:31→21:21)
[2019-06-23] MEDS: DICLOFENAC SODIUM 75 MG TABLET PO SCH ×2 (09:31→21:30)
[2019-06-23] MEDS: PANTOPRAZOLE 40 MG VIAL IV SCH ×2 (10:17→21:21)
[2019-06-23] MEDS ORDERED: LACTULOSE 20 GM/30 ML UDCUP PO PRN (11:48)
[2019-06-23] MEDS: ONDANSETRON 4 MG/2 ML VIAL IV PRN (14:27)
[2019-06-23] MEDS ORDERED: ROSUVASTATIN 20 MG TABLET PO SCH (21:00)
[2019-06-23] MEDS: ROSUVASTATIN 20 MG TABLET PO SCH (21:21)
[2019-06-23] MEDS: carvediloL 3.125 MG TABLET PO SCH (21:23)
[2019-06-23] MEDS: SERTRALINE 50 MG TABLET PO SCH (21:23)
[2019-06-24] MEDS: INSULIN REGULAR 100 UNIT/ML SUBCUT SCH ×6 (00:02→22:27)
[2019-06-24] MEDS: POLYETHYLENE GLYCOL POWDER 17 GM PACK PO SCH (09:04)
[2019-06-24] MEDS: ASPIRIN CHEW 81 MG TABLET PO SCH (09:05)
[2019-06-24] MEDS: FUROSEMIDE 40 MG TABLET PO SCH (09:05)
[2019-06-24] MEDS: POTASSIUM CHLORIDE 20 MEQ TABLET PO SCH ×2 (09:05→21:30)
[2019-06-24] MEDS: CLORAZEPATE 3.75 MG TABLET PO PRN ×2 (09:05→21:30)
[2019-06-24] MEDS: CIPROFLOXACIN 500 MG TABLET PO SCH ×2 (09:05→21:31)
[2019-06-24] MEDS: SULFAMETHOX/TRIMETHOPRIM 800-160 MG TABLET PO SCH ×2 (09:05→21:31)
[2019-06-24] MEDS: FENOFIBRATE 145 MG TABLET PO SCH (09:06)
[2019-06-24] MEDS: carvediloL 3.125 MG TABLET PO SCH ×2 (09:06→21:31)
[2019-06-24] MEDS: predniSONE 20 MG TABLET PO SCH ×3 (09:06→21:30)
[2019-06-24] MEDS: TICAGRELOR 90 MG TABLET PO SCH ×2 (09:06→21:31)
[2019-06-24] MEDS: DICLOFENAC SODIUM 75 MG TABLET PO SCH ×2 (09:06→21:36)
[2019-06-24] MEDS: AMIODARONE 200 MG TABLET PO SCH ×2 (09:06→21:30)
[2019-06-24] MEDS: ASCORBIC ACID 500 MG TABLET PO SCH ×2 (09:06→21:30)
[2019-06-24] MEDS: ENOXAPARIN 40 MG/0.4 ML SYRINGE SUBCUT SCH (09:07)
[2019-06-24] MEDS: BUDESONIDE/FORMOTEROL 160-4.5 INHALER 6 GM INH SCH ×2 (09:07→21:32)
[2019-06-24] MEDS: PANTOPRAZOLE 40 MG VIAL IV SCH ×2 (09:15→21:31)
[2019-06-24] MEDS: ACETAMINOPHEN 325 MG TABLET PO PRN (12:01)
[2019-06-24] MEDS: ROSUVASTATIN 20 MG TABLET PO SCH (21:30)
[2019-06-24] MEDS: ZALEPLON 5 MG CAPSULE PO SCH (21:31)
[2019-06-24] MEDS: SERTRALINE 50 MG TABLET PO SCH (21:31)
[2019-06-25] MEDS: INSULIN REGULAR 100 UNIT/ML SUBCUT SCH ×6 (01:32→21:58)
[2019-06-25] MEDS: ONDANSETRON 4 MG/2 ML VIAL IV PRN (04:29)
[2019-06-25] MEDS: MAGNESIUM HYDROXIDE SUSP 30 ML UDCUP PO PRN (04:36)
[2019-06-25 05:44] LABS: Hematocrit 35.7 VOL% (35.7-47.0); Hemoglobin 11.4 GM/DL (12.0-16.0); Immature Granulocytes % 0.5 %; Immature Granulocytes Absolute 0.03 #; Lymphocytes % 17.2 % (21.3-54.2); Mean Corpuscular HGB Conc 31.9 GM/DL (32-36); Mean Corpuscular Volume 94.9 FL (87-102); Mean Platelet Volume 11.4 FL (9.6-12.0); Monocytes % 17.5 % (1.7-12.7); Neutrophils % 64.8 % (38.7-73.9); Platelet Count 405 T/CUMM (130-400); Red Blood Count 3.76 MC/CUMM (3.8-5.5); Red Cell Distribution Width 16.8 % (9.3-17.3); White Blood Count 6.1 T/CUMM (4-12)
[2019-06-25 06:05] LABS: Calcium 9.1 MG/DL (8.5-10.1); Osmolality,Calculated 269.4 MOS/KG (273-304)
[2019-06-25 06:46] LABS: Lymphocytes 13 % (20-55); Platelet Estimate Normal; Polychromasia Few; Segmented Neutrophils 73 % (50-85); Total Cells Counted 100
[2019-06-25] MEDS ORDERED: SODIUM POLYSTYRENE SULFATE 15 GM/60 ML BOTTLE PO STA (07:39)
[2019-06-25] MEDS: FENOFIBRATE 145 MG TABLET PO SCH (09:26)
[2019-06-25] MEDS: TICAGRELOR 90 MG TABLET PO SCH ×2 (09:26→21:58)
[2019-06-25] MEDS: SULFAMETHOX/TRIMETHOPRIM 800-160 MG TABLET PO SCH ×2 (09:26→21:57)
[2019-06-25] MEDS: PANTOPRAZOLE 40 MG VIAL IV SCH ×2 (09:26→22:08)
[2019-06-25] MEDS: ENOXAPARIN 40 MG/0.4 ML SYRINGE SUBCUT SCH (09:26)
[2019-06-25] MEDS: ASCORBIC ACID 500 MG TABLET PO SCH ×2 (09:26→21:57)
[2019-06-25] MEDS: CIPROFLOXACIN 500 MG TABLET PO SCH ×2 (09:26→21:58)
[2019-06-25] MEDS: ASPIRIN CHEW 81 MG TABLET PO SCH (09:27)
[2019-06-25] MEDS: POLYETHYLENE GLYCOL POWDER 17 GM PACK PO SCH (09:27)
[2019-06-25] MEDS: SODIUM CHLORIDE 0.9% 1,000 ML IV SCH ×2 (09:27→22:38)
[2019-06-25] MEDS: carvediloL 3.125 MG TABLET PO SCH ×2 (09:27→21:57)
[2019-06-25] MEDS: AMIODARONE 200 MG TABLET PO SCH ×2 (09:27→21:58)
[2019-06-25] MEDS: predniSONE 20 MG TABLET PO SCH ×3 (09:27→21:57)
[2019-06-25] MEDS: BUDESONIDE/FORMOTEROL 160-4.5 INHALER 6 GM INH SCH ×2 (09:28→22:08)
[2019-06-25] MEDS: CLORAZEPATE 3.75 MG TABLET PO PRN ×2 (09:54→22:01)
[2019-06-25] MEDS: DICLOFENAC SODIUM 75 MG TABLET PO SCH ×2 (09:54→22:38)
[2019-06-25] MEDS: ROSUVASTATIN 20 MG TABLET PO SCH (21:57)
[2019-06-25] MEDS: ZALEPLON 5 MG CAPSULE PO SCH (21:57)
[2019-06-25] MEDS: SERTRALINE 50 MG TABLET PO SCH (21:58)
[2019-06-26] MEDS: INSULIN REGULAR 100 UNIT/ML SUBCUT SCH ×6 (01:23→21:11)
[2019-06-26 05:53] LABS: Calcium 8.3 MG/DL (8.5-10.1); Osmolality,Calculated 273.2 MOS/KG (273-304)
[2019-06-26] MEDS: DICLOFENAC SODIUM 75 MG TABLET PO SCH ×2 (08:34→21:13)
[2019-06-26] MEDS: AMIODARONE 200 MG TABLET PO SCH ×2 (08:34→21:12)
[2019-06-26] MEDS: carvediloL 3.125 MG TABLET PO SCH ×2 (08:34→21:14)
[2019-06-26] MEDS: FENOFIBRATE 145 MG TABLET PO SCH (08:34)
[2019-06-26] MEDS: SULFAMETHOX/TRIMETHOPRIM 800-160 MG TABLET PO SCH ×2 (08:34→21:12)
[2019-06-26] MEDS: CLORAZEPATE 3.75 MG TABLET PO PRN ×2 (08:34→21:14)
[2019-06-26] MEDS: ASCORBIC ACID 500 MG TABLET PO SCH ×2 (08:34→21:12)
[2019-06-26] MEDS: TICAGRELOR 90 MG TABLET PO SCH ×2 (08:34→21:14)
[2019-06-26] MEDS: CIPROFLOXACIN 500 MG TABLET PO SCH ×2 (08:34→21:12)
[2019-06-26] MEDS: BUDESONIDE/FORMOTEROL 160-4.5 INHALER 6 GM INH SCH ×2 (08:35→21:48)
[2019-06-26] MEDS: ENOXAPARIN 40 MG/0.4 ML SYRINGE SUBCUT SCH (08:35)
[2019-06-26] MEDS: POLYETHYLENE GLYCOL POWDER 17 GM PACK PO SCH (08:35)
[2019-06-26] MEDS: predniSONE 20 MG TABLET PO SCH ×3 (08:35→21:13)
[2019-06-26] MEDS: ASPIRIN CHEW 81 MG TABLET PO SCH (08:35)
[2019-06-26] MEDS: PANTOPRAZOLE 40 MG VIAL IV SCH ×2 (08:35→21:11)
[2019-06-26] MEDS: ONDANSETRON 4 MG/2 ML VIAL IV PRN ×2 (13:10→21:18)
[2019-06-26] MEDS: ROSUVASTATIN 20 MG TABLET PO SCH (21:12)
[2019-06-26] MEDS: SERTRALINE 50 MG TABLET PO SCH (21:13)
[2019-06-26] MEDS: ZALEPLON 5 MG CAPSULE PO SCH (21:14)
[2019-06-27] MEDS: INSULIN REGULAR 100 UNIT/ML SUBCUT SCH ×6 (00:35→21:20)
[2019-06-27 05:21] LABS: Basophils % 0.2 % (0.0-0.8); Hemoglobin 8.3 GM/DL (12.0-16.0); Immature Granulocytes % 1.4 %; Immature Granulocytes Absolute 0.07 #; Lymphocytes # 0.7 10*3/uL (1.4-4.0); Lymphocytes % 14.4 % (21.3-54.2); Mean Corpuscular HGB Conc 31.9 GM/DL (32-36); Mean Platelet Volume 11.2 FL (9.6-12.0); Monocytes % 7.9 % (1.7-12.7); Neutrophils % 76.1 % (38.7-73.9); Platelet Count 246 T/CUMM (130-400); Red Blood Count 2.68 MC/CUMM (3.8-5.5); Red Cell Distribution Width 16.2 % (9.3-17.3); White Blood Count 5.1 T/CUMM (4-12)
[2019-06-27 05:46] LABS: Calcium 8.4 MG/DL (8.5-10.1); Osmolality,Calculated 265.8 MOS/KG (273-304)
[2019-06-27 05:50] LABS: Band Neutrophils 4 % (0-10); Lymphocytes 13 % (20-55); Segmented Neutrophils 78 % (50-85); Total Cells Counted 100
[2019-06-27 05:51] LABS: Macrocytosis 1+; Platelet Estimate Normal
[2019-06-27 05:52] LABS: Hypochromasia Slight
[2019-06-27] MEDS: ASPIRIN CHEW 81 MG TABLET PO SCH (09:34)
[2019-06-27] MEDS: AMIODARONE 200 MG TABLET PO SCH ×2 (09:35→21:22)
[2019-06-27] MEDS: carvediloL 3.125 MG TABLET PO SCH ×2 (09:35→21:22)
[2019-06-27] MEDS: TICAGRELOR 90 MG TABLET PO SCH ×2 (09:35→21:22)
[2019-06-27] MEDS: POLYETHYLENE GLYCOL POWDER 17 GM PACK PO SCH (09:35)
[2019-06-27] MEDS: CIPROFLOXACIN 500 MG TABLET PO SCH ×2 (09:35→21:21)
[2019-06-27] MEDS: ENOXAPARIN 40 MG/0.4 ML SYRINGE SUBCUT SCH (09:35)
[2019-06-27] MEDS: SULFAMETHOX/TRIMETHOPRIM 800-160 MG TABLET PO SCH ×2 (09:35→21:21)
[2019-06-27] MEDS: DICLOFENAC SODIUM 75 MG TABLET PO SCH ×2 (09:36→21:21)
[2019-06-27] MEDS: BUDESONIDE/FORMOTEROL 160-4.5 INHALER 6 GM INH SCH ×2 (09:36→21:23)
[2019-06-27] MEDS: FENOFIBRATE 145 MG TABLET PO SCH (09:36)
[2019-06-27] MEDS: PANTOPRAZOLE 40 MG VIAL IV SCH (09:36)
[2019-06-27] MEDS: predniSONE 20 MG TABLET PO SCH ×3 (09:36→21:21)
[2019-06-27] MEDS: ASCORBIC ACID 500 MG TABLET PO SCH ×2 (09:36→21:32)
[2019-06-27] MEDS: CLORAZEPATE 3.75 MG TABLET PO PRN ×2 (09:44→21:21)
[2019-06-27] MEDS ORDERED: SODIUM CHLORIDE 0.9% 1,000 ML IV PRN ×2 (10:39→10:42)
[2019-06-27] MEDS: ONDANSETRON 4 MG/2 ML VIAL IV PRN (11:03)
[2019-06-27] MEDS ORDERED: FUROSEMIDE 40 MG/4 ML VIAL IV ONE (15:00)
[2019-06-27] MEDS: PANTOPRAZOLE 40 MG TABLET PO SCH (19:07)
[2019-06-27] MEDS: ROSUVASTATIN 20 MG TABLET PO SCH (21:21)
[2019-06-27] MEDS: ZALEPLON 5 MG CAPSULE PO SCH (21:22)
[2019-06-27] MEDS: SERTRALINE 50 MG TABLET PO SCH (21:22)
[2019-06-28] MEDS: INSULIN REGULAR 100 UNIT/ML SUBCUT SCH ×6 (01:20→21:50)
[2019-06-28 05:20] LABS: Basophils % 0.1 % (0.0-0.8); Hematocrit 33.3 VOL% (35.7-47.0); Immature Granulocytes % 2.8 %; Lymphocytes # 0.8 10*3/uL (1.4-4.0); Lymphocytes % 11.5 % (21.3-54.2); Mean Platelet Volume 11.5 FL (9.6-12.0); Monocytes % 7.6 % (1.7-12.7); Platelet Count 227 T/CUMM (130-400); Red Blood Count 3.66 MC/CUMM (3.8-5.5); Red Cell Distribution Width 16.6 % (9.3-17.3); White Blood Count 7.1 T/CUMM (4-12)
[2019-06-28 05:55] LABS: Calcium 8.4 MG/DL (8.5-10.1); Osmolality,Calculated 267.5 MOS/KG (273-304)
[2019-06-28] MEDS: POTASSIUM CHLORIDE 20 MEQ TABLET PO PRN ×2 (06:11→10:01)
[2019-06-28] MEDS: ASCORBIC ACID 500 MG TABLET PO SCH ×2 (10:00→21:51)
[2019-06-28] MEDS: CIPROFLOXACIN 500 MG TABLET PO SCH ×2 (10:01→21:52)
[2019-06-28] MEDS: AMIODARONE 200 MG TABLET PO SCH ×2 (10:02→21:51)
[2019-06-28] MEDS: FENOFIBRATE 145 MG TABLET PO SCH (10:02)
[2019-06-28] MEDS: SULFAMETHOX/TRIMETHOPRIM 800-160 MG TABLET PO SCH ×2 (10:02→21:52)
[2019-06-28] MEDS: predniSONE 20 MG TABLET PO SCH ×3 (10:02→21:52)
[2019-06-28] MEDS: carvediloL 3.125 MG TABLET PO SCH ×2 (10:02→21:52)
[2019-06-28] MEDS: ASPIRIN CHEW 81 MG TABLET PO SCH (10:02)
[2019-06-28] MEDS: LINACLOTIDE 145 MCG CAPSULE PO SCH (10:03)
[2019-06-28] MEDS: TICAGRELOR 90 MG TABLET PO SCH ×2 (10:03→21:52)
[2019-06-28] MEDS: DICLOFENAC SODIUM 75 MG TABLET PO SCH ×2 (10:03→21:51)
[2019-06-28] MEDS: PANTOPRAZOLE 40 MG TABLET PO SCH ×2 (10:04→21:52)
[2019-06-28] MEDS: BUDESONIDE/FORMOTEROL 160-4.5 INHALER 6 GM INH SCH ×2 (10:07→21:52)
[2019-06-28] MEDS: ACETAMINOPHEN 325 MG TABLET PO PRN (10:19)
[2019-06-28] MEDS: CLORAZEPATE 3.75 MG TABLET PO PRN ×2 (10:20→21:51)
[2019-06-28] MEDS ORDERED: POTASSIUM CHLORIDE 20 MEQ TABLET PO ONE (15:53)
[2019-06-28] MEDS: ZALEPLON 5 MG CAPSULE PO SCH (21:50)
[2019-06-28] MEDS: SERTRALINE 50 MG TABLET PO SCH (21:51)
[2019-06-28] MEDS: ROSUVASTATIN 20 MG TABLET PO SCH (21:51)
[2019-06-29 05:06] LABS: Basophils % 0.1 % (0.0-0.8); Hematocrit 34.6 VOL% (35.7-47.0); Hemoglobin 11.3 GM/DL (12.0-16.0); Immature Granulocytes % 4.2 %; Immature Granulocytes Absolute 0.35 #; Lymphocytes # 0.8 10*3/uL (1.4-4.0); Lymphocytes % 9.1 % (21.3-54.2); Mean Corpuscular HGB Conc 32.7 GM/DL (32-36); Mean Corpuscular Volume 93.8 FL (87-102); Mean Platelet Volume 11.4 FL (9.6-12.0); Monocytes % 5.2 % (1.7-12.7); Neutrophils % 81.4 % (38.7-73.9); Platelet Count 236 T/CUMM (130-400); Red Blood Count 3.69 MC/CUMM (3.8-5.5); Red Cell Distribution Width 16.8 % (9.3-17.3); White Blood Count 8.3 T/CUMM (4-12)
[2019-06-29 05:33] LABS: Calcium 8.5 MG/DL (8.5-10.1); Osmolality,Calculated 270.4 MOS/KG (273-304)
[2019-06-29] MEDS ORDERED: predniSONE 10 MG TABLET ONE (08:43)
[2019-06-29] MEDS: INSULIN REGULAR 100 UNIT/ML SUBCUT SCH ×2 (09:19→14:21)
[2019-06-29] MEDS: TICAGRELOR 90 MG TABLET PO SCH (09:50)
[2019-06-29] MEDS: LINACLOTIDE 145 MCG CAPSULE PO SCH (09:50)
[2019-06-29] MEDS: carvediloL 3.125 MG TABLET PO SCH (09:50)
[2019-06-29] MEDS: CLORAZEPATE 3.75 MG TABLET PO PRN (09:50)
[2019-06-29] MEDS: AMIODARONE 200 MG TABLET PO SCH (09:50)
[2019-06-29] MEDS: predniSONE 20 MG TABLET PO SCH (09:51)
[2019-06-29] MEDS: FENOFIBRATE 145 MG TABLET PO SCH (09:51)
[2019-06-29] MEDS: ASCORBIC ACID 500 MG TABLET PO SCH (09:51)
[2019-06-29] MEDS: PANTOPRAZOLE 40 MG TABLET PO SCH (09:51)
[2019-06-29] MEDS: SULFAMETHOX/TRIMETHOPRIM 800-160 MG TABLET PO SCH (09:52)
[2019-06-29] MEDS: DICLOFENAC SODIUM 75 MG TABLET PO SCH (09:52)
[2019-06-29] MEDS: ASPIRIN CHEW 81 MG TABLET PO SCH (09:52)
[2019-06-29] MEDS: BUDESONIDE/FORMOTEROL 160-4.5 INHALER 6 GM INH SCH (09:53)
[2019-06-29] MEDS: CIPROFLOXACIN 500 MG TABLET PO SCH (09:53)
[2019-06-29 14:23] VITALS: BP 88/63
== END 2019-06-29 13:05 | disposition home or self-care (01) | DRG 246 ==
LOC: N.CL 06:52 → N.ICU 07:16 → SUPCPDRO 07:16 → N.CL 08:21 → N.ICU 12:17 → N.TELEN 06-22 21:31
PROVIDERS: ADMIT Internal Medicine Cardiovascular Disease; ATTEND Internal Medicine Cardiovascular Disease
PROC: CLCCHCL (ICD-10-PCS; 2019-05-27 06:15)